=== PATIENT | female | born 1965 | race Caucasian/White ===

== ENCOUNTER → 2017-11-13 20:29 | Outpatient (CLI) | payer BC, SELFPAY ==
[2017-11-18 13:22] LABS: HPV Reflexed? NOT INDICATED
== END ==
PROVIDERS: Visit Provider Obstetrics & Gynecology
DX: Z12.4 Encounter for screening for malignant neoplasm of cervix (principal)
CPT/HCPCS: 88175; G0145

== ENCOUNTER → 2018-03-07 10:35 | Outpatient (CLI) | payer BC, SELFPAY ==
--- NOTE | 2018-03-07 10:40 | BI_ITS ---
MAMMOGRAPHY - BILATERAL SCREENING REASON FOR EXAM: Female, 52 years old. Routine annual screening examination. PERTINENT HISTORY: Grandmother with breast cancer. Aunt with breast cancer. TECHNIQUE: Digital bilateral breast donna (3D mammographic acquisition) in the CC and MLO projections. 2-D mediolateral oblique (MLO) and craniocaudad (CC) views of both breasts were obtained. CAD: Full Field Digital Mammography with Computer Added Detection was performed. COMPARISON: Comparison is made with prior study dated January 11, 2017 and January 10, 2016. FINDINGS: Breast Composition: There are scattered areas of fibroglandular density. There are no dominant masses or suspicious calcifications. Stable small bilateral axillary lymph nodes. No other significant abnormalities are identified. There has been no significant change since the prior study. BI/SCREENING MAMM (CAD), BILAT IMPRESSION: Stable bilateral screening mammogram. Yearly follow-up mammogram recommended. (A) ASSESSMENT CATEGORY: BIRADS Category 2: Benign. A letter regarding these results will be sent to the patient by the facility within 30 days. Approximately 10% of breast cancers are not detected by mammography. A normal mammogram should not delay biopsy of a clinically suspicious abnormality. [id number] Electronically Signed: Chris Britt MD at 11:53 EST , Service support ,
== END ==
PROVIDERS: Family Provider Family Medicine; PCP Family Medicine; Referring Provider Obstetrics & Gynecology; Visit Provider Obstetrics & Gynecology
DX: Z12.31 Encounter for screening mammogram for malignant neoplasm of breast (principal)
CPT/HCPCS: 77063; 77067

== ENCOUNTER → 2018-10-03 | Outpatient (CLI) | payer BC, SELFPAY ==
[2017-01-18 10:04] VITALS: BMI 28.5
--- NOTE | 2018-10-03 11:20 | RAD_ITS ---
STUDY: X-RAY CHEST REASON FOR EXAM: Female, 53 years old. Cough. TECHNIQUE: PA and lateral views of the chest. COMPARISON: None. FINDINGS: The lungs are clear and expanded. There is no demonstrated pleural abnormality. Normal size heart. Normal mediastinum and mike. Normal visualized pulmonary arteries. Normal visualized aortic arch and descending thoracic aorta. Normal visualized thoracic spine. Normal visualized ribs, clavicles, and shoulders. There is no demonstrated abnormality of the visualized soft tissue structures of the upper abdomen. RAD/Chest PA and Lateral IMPRESSION: Normal x-ray examination of the chest. Electronically Signed: Danny Shah MD at 13:33 EDT , Service support ,
== END | disposition home or self-care (01) ==
LOC: MTRAD 11:18
PROVIDERS: Family Provider Family Medicine; PCP Family Medicine; Referring Provider Family Medicine; Visit Provider Family Medicine
DX: R05 Cough (principal)
CPT/HCPCS: 71046

== ENCOUNTER → 2018-12-17 | Outpatient (CLI) | payer BC, SELFPAY ==
[2017-01-18 10:04] VITALS: BMI 28.5
== END | disposition home or self-care (01) ==
LOC: WOBLAB 12:27
PROVIDERS: Visit Provider Obstetrics & Gynecology
DX: E55.9 Vitamin D deficiency, unspecified (principal)
CPT/HCPCS: 36415; 82306

== ENCOUNTER → 2019-04-15 10:02 | Outpatient (CLI) | payer BC, SELFPAY ==
[2019-03-09 09:09] LABS: Hematocrit 45.9 % (37-47); Hemoglobin 15.2 g/dL (12.0-15.0); Mean Corp Hgb Conc 33.1 g/dL (32-36); Mean Corpuscular Hgb 29.2 pg (27.0-32.0); Mean Corpuscular Volume 88.3 fL (81-99); Mean Platelet Vol. 8.9 fl (6.2-12.0); Platelet Count 219 K/mm3 (150-450); RBC Distribution Width CV 12.4 % (11.6-14.6); White Blood Count 5.2 K/mm3 (4.4-11.0)
[2019-03-09 09:58] LABS: Hemoglobin A1c 4.9 % (4.2-6.3)
[2019-03-09 10:50] LABS: ALB/GLOB Ratio 1.2 RATIO (0.9-2.4); AST(SGOT) 25 U/L (15-37); Alanine Aminotransfer ALT/SGPT 32 U/L (13-56); Albumin, Serum 4.2 g/dL (3.2-5.0); Alkaline Phosphatase 77 U/L (45-117); Anion Gap 3 (5-15); BUN 18 mg/dL (7-18); BUN/Creat Ratio 22.1 RATIO (10-20); CRP 3.38 mg/L (0.0-3.0); Calcium,Total 9.9 mg/dL (8.5-10.1); Chloride 107 mmol/L (98-107); Cholesterol 192 mg/dL (200); Creatinine, Serum 0.81 mg/dL (0.55-1.02); EST Glomerular Filtration Rate 78 mL/min (>60); Est Glom Filt Rate - Afr Amer 94 mL/min (>60); Estradiol 14.1 pg/mL; Ferritin 32 ng/mL (8-252); Free T3 3.1 pg/mL (2.18-3.98); GGTP 8 U/L (5-55); Globulin 3.6 g/dL (2.2-4.2); Glucose 87 mg/dL (74-106); High Density Lipoprotein 62 mg/dL; Iron 116 ug/dL (50-170); Iron Binding Capacity,Total 353 ug/dL (250-450); PERCENT IRON SATURATION 32.9 % (15.0-55.0); Potassium 4.1 mmol/L (3.5-5.1); Protein, Total 7.8 g/dL (6.4-8.2); Sodium Level 141 mmol/L (136-145); T4 Free Direct 1.09 ng/dL (0.76-1.46); Thyroid Stim Hormone (TSH) 1.79 uIU/mL (0.358-3.74); Triglycerides 92 mg/dL; Very Low Density Lipoprotein 18 mg/dL (5-40)
[2019-03-09 11:47] LABS: Glucose 2 Hour Postprandial 91 mg/dL (<140)
[2019-03-09 11:55] LABS: Insulin 76.9 mU/L (2.6-37.6)
[2019-03-12 16:07] LABS: DHEA Sulfate 143.6 ug/dL (29.4-220.5)
[2019-03-13 13:20] LABS: T3 Reverse 18.9 ng/dL (9.2-24.1)
--- NOTE | 2019-04-15 10:04 | BI_ITS ---
MAMMOGRAPHY - BILATERAL SCREENING REASON FOR EXAM: Female, 53 years old. Routine annual screening examination. PERTINENT HISTORY: History of prior right stereotactic breast biopsy. Grandmother with breast cancer. Aunt with breast cancer. TECHNIQUE: Digital bilateral breast anthony (3D mammographic acquisition) in the CC and MLO projections. 2-D mediolateral oblique (MLO) and craniocaudad (CC) views of both breasts were obtained. CAD: Full Field Digital Mammography with Computer Added Detection was performed. COMPARISON: Comparison is made with prior examination dated March 07, 2018 and January 11, 2017 FINDINGS: Breast Composition: There are scattered areas of fibroglandular density. There are no dominant masses or suspicious calcifications. A tissue clip marker is seen in the superior anterior aspect of the right breast. No other significant abnormalities are identified. There has been no significant change since the prior study. BI/SCREEN MAMM (CAD) W/ANHTONY BILAT IMPRESSION: Stable bilateral screening mammogram. Yearly follow-up mammogram recommended. (A) ASSESSMENT CATEGORY: BIRADS Category 2: Benign. A letter regarding these results will be sent to the patient by the facility within 30 days. Approximately 10% of breast cancers are not detected by mammography. A normal mammogram should not delay biopsy of a clinically suspicious abnormality. [id number] Electronically Signed: Chris Britt, at 11:00 EST , Service support ,
== END ==
PROVIDERS: Obstetrics & Gynecology; PCP Family Medicine; Referring Provider Obstetrics & Gynecology; Visit Provider Obstetrics & Gynecology
DX: R53.83 Other fatigue (principal); R73.03 Prediabetes; M79.10 Myalgia, unspecified site; M79.7 Fibromyalgia; G47.00 Insomnia, unspecified; N95.1 Menopausal and female climacteric states; Z13.228 Encounter for screening for other metabolic disorders; Z12.31 Encounter for screening mammogram for malignant neoplasm of breast
CPT/HCPCS: 36415; 77063; 77067; 80053; 80061; 82533; 82627; 82670; 82728; 82950; 82977; 83036; 83090; 83525; 83540; 83550; 84403; 84439; 84443; 84481; 84482; 85027; 86140; 82626

== ENCOUNTER → 2019-09-10 | Outpatient (CLI) | payer BC, SELFPAY | END | disposition home or self-care (01) | LOC: MTDU 17:34 | PROVIDERS: PCP Family Medicine; Referring Provider Family Medicine; Visit Provider Family Medicine | DX: U07.1 COVID-19 (principal) | CPT/HCPCS: 87635; 94799; U0003 ==

== ENCOUNTER → 2019-10-06 | Outpatient (CLI) | payer BC, SELFPAY | END | disposition home or self-care (01) | LOC: MTDU 17:34 | PROVIDERS: PCP Family Medicine; Referring Provider Family Medicine; Visit Provider Family Medicine | DX: U07.1 COVID-19 (principal); J98.8 Other specified respiratory disorders; Z86.19 Personal history of other infectious and parasitic diseases | CPT/HCPCS: 87635; 94799; U0003 ==

== ENCOUNTER 2020-04-21 09:55 | Outpatient (RCR) | payer BC, SELFPAY ==
[2017-01-18 10:04] VITALS: BMI 28.5
[2020-04-21] MEDS: COVID-19 VACC, MRNA(PFIZER)/PF 30 MCG/0.3 ML SYRINGE IM (18:17)
[2020-05-12] MEDS: COVID-19 VACC, MRNA(PFIZER)/PF 30 MCG/0.3 ML SYRINGE IM (17:53)
== END 2020-07-19 23:59 ==
LOC: IMMUN 09:55
PROVIDERS: PCP Family Medicine; Visit Provider Family Medicine
DX: Z23 Encounter for immunization (principal)
CPT/HCPCS: 0001A; 0002A; 91300

== ENCOUNTER → 2020-06-17 09:58 | Outpatient (CLI) | payer BC, SELFPAY ==
[2017-01-18 10:04] VITALS: BMI 28.5
--- NOTE | 2020-06-17 10:01 | BI_ITS ---
MAMMOGRAPHY - BILATERAL SCREENING REASON FOR EXAM: Female, 54 years old. Routine annual screening examination. PERTINENT HISTORY: Grandmother with breast cancer. Aunts with breast cancer. Remote right stereotactic breast biopsy. TECHNIQUE: Digital bilateral breast anthony (3D mammographic acquisition) in the CC and MLO projections. 2-D mediolateral oblique (MLO) and craniocaudad (CC) views of both breasts were obtained. CAD: Full Field Digital Mammography with Computer Added Detection was performed. COMPARISON: Comparison is made with prior study dated 04/15/2019 and 03/07/2018. FINDINGS: Breast Composition: There are scattered areas of fibroglandular density. There are no dominant masses or suspicious calcifications. Stable benign-appearing bilateral axillary lymph nodes. A tissue clip marker is once again seen in the superior anterior central portion of the right breast. No other significant abnormalities are identified. There has been no significant change since the prior study. BI/SCRN MAMM (CAD)W/ANTHONY BILAT IMPRESSION: Stable bilateral screening mammogram. Yearly follow-up mammogram recommended. (A) ASSESSMENT CATEGORY: BIRADS Category 2: Benign. A letter regarding these results will be sent to the patient by the facility within 30 days. Approximately 10% of breast cancers are not detected by mammography. A normal mammogram should not delay biopsy of a clinically suspicious abnormality. [id number] Electronically Signed: Chris Britt MD at 10:56 EDT , Service support ,
== END ==
PROVIDERS: PCP Family Medicine; Referring Provider Obstetrics & Gynecology; Visit Provider Obstetrics & Gynecology
DX: Z12.31 Encounter for screening mammogram for malignant neoplasm of breast (principal)
CPT/HCPCS: 77063; 77067

== ENCOUNTER → 2020-08-31 | Outpatient (CLI) | payer BC, SELFPAY | END | disposition home or self-care (01) | LOC: LABSPEC 16:50 | PROVIDERS: PCP Family Medicine; Visit Provider Obstetrics & Gynecology | DX: R30.0 Dysuria (principal) | CPT/HCPCS: 87086 ==

== ENCOUNTER → 2020-09-01 09:05 | Outpatient (CLI) | payer BC, SELFPAY ==
[2020-09-01 10:22] LABS: Glucose 84 mg/dL (74-106)
[2020-09-02 08:27] LABS: Insulin 8.4 mU/L (2.6-37.6)
== END ==
PROVIDERS: PCP Family Medicine; Visit Provider Obstetrics & Gynecology
DX: E34.9 Endocrine disorder, unspecified (principal)
CPT/HCPCS: 36415; 82947; 83525

== ENCOUNTER 2021-02-22 13:32 | Outpatient (CLI) | payer BC, SELFPAY ==
[2021-02-28 22:06] LABS: HPV Genotype 16, Aptima Negative (Negative)
[2021-03-01 08:29] LABS: HPV APTIMA, High Risk Positive (Negative); HPV Genotype 18,45 Aptima Negative (Negative)
== END 2021-02-22 23:59 | disposition short-term general hospital (02) ==
LOC: LABSPEC 13:33
PROVIDERS: PCP Family Medicine; Visit Provider Obstetrics & Gynecology
DX: Z12.4 Encounter for screening for malignant neoplasm of cervix (principal)
CPT/HCPCS: 87624; 88175; G0145

== ENCOUNTER 2021-03-10 11:28 | Outpatient (CLI) | payer BC, SELFPAY ==
[2021-03-10 12:20] LABS: Absolute Lymphocyte Count 1.51 X10^3/uL (0.83-4.51); Absolute Neutrophil Count 3.3 X10^3/uL (2.0-7.7); Basophil# 0.03 X10^3/uL; Basophil% 0.6 % (0-1); Eosinophil# 0.12 X10^3/uL; Eosinophils% 2.2 % (0-5); Hematocrit 43.4 % (37-47); Hemoglobin 14.5 g/dL (12.0-15.0); Lymphocyte # 1.51 X10^3/ul (0.83-4.51); Mean Corp Hgb Conc 33.4 g/dL (32-36); Mean Corpuscular Hgb 29.8 pg (27.0-32.0); Mean Corpuscular Volume 89.3 fL (81-99); Mean Platelet Vol. 9.4 fl (6.2-12.0); Monocyte# 0.44 X10^3/uL; Monocyte% 8.1 % (0-10); NRBC Flagged by Analyzer 0 % (0-5); Neutrophil # 3.28 X10^3/uL (2.7-7.7); Neutrophil % 60.7 % (47-70); Platelet Count 246 K/mm3 (150-450); RBC Distribution Width CV 12.3 % (11.6-14.6); RBC Distribution Width SD 39.9 fl (35.1-43.9); Red Blood Count 4.86 M/mm3 (4.2-5.4); White Blood Count 5.4 K/mm3 (4.4-11.0)
[2021-03-10 12:52] LABS: Vitamin B12 791 pg/mL (211-911); Vitamin D,25 Hydroxy 55.2 ng/mL
[2021-03-10 13:08] LABS: ALB/GLOB Ratio 1.2 RATIO (0.9-2.4); AST(SGOT) 20 U/L (15-37); Alanine Aminotransfer ALT/SGPT 30 U/L (13-56); Albumin, Serum 3.9 g/dL (3.2-5.0); Alkaline Phosphatase 86 U/L (45-117); Anion Gap 3 (5-15); BUN 19 mg/dL (7-18); BUN/Creat Ratio 27.3 RATIO (10-20); Calcium,Total 9.1 mg/dL (8.5-10.1); Chloride 106 mmol/L (98-107); EST Glomerular Filtration Rate 92 mL/min (>60); Est Glom Filt Rate - Afr Amer 111 mL/min (>60); Globulin 3.2 g/dL (2.2-4.2); Glucose 82 mg/dL (74-106); Magnesium 2.6 mg/dL (1.6-2.6); Potassium 4.1 mmol/L (3.5-5.1); Protein, Total 7.1 g/dL (6.4-8.2); Sodium Level 139 mmol/L (136-145); Thyroid Stim Hormone (TSH) 1.58 uIU/mL (0.358-3.74)
== END 2021-03-10 23:59 | disposition short-term general hospital (02) ==
LOC: BIMLAB 11:28
PROVIDERS: PCP Internal Medicine; Referring Provider Internal Medicine; Visit Provider Internal Medicine
DX: F41.9 Anxiety disorder, unspecified (principal); F32.A Depression, unspecified; G47.00 Insomnia, unspecified; E83.42 Hypomagnesemia
CPT/HCPCS: 36415; 80053; 82306; 82607; 83735; 84443; 85025

== ENCOUNTER → 2021-06-19 | Outpatient (CLI) | payer BC, SELFPAY ==
--- NOTE | 2021-06-19 10:57 | BI_ITS ---
MAMMOGRAPHY - BILATERAL SCREENING REASON FOR EXAM: Female, 55 years old. Routine annual screening examination. PERTINENT HISTORY: Grandmother with breast cancer. Aunts with breast cancer. Remote right stereotactic breast biopsy. TECHNIQUE: Digital bilateral breast anthony (3D mammographic acquisition) in the CC and MLO projections. 2-D mediolateral oblique (MLO) and craniocaudad (CC) views of both breasts were obtained. CAD: Full Field Digital Mammography with Computer Added Detection was performed. COMPARISON: Comparison is made with prior study of 06/17/2020 and 04/15/2019. FINDINGS: Breast Composition: There are scattered areas of fibroglandular density. There are no dominant masses or suspicious calcifications. A tissue clip marker is once again seen in the superior anterior central portion of the right breast. Stable small benign-appearing bilateral axillary lymph nodes. No other significant abnormalities are identified. There has been no significant change since the prior study. BI/SCRN MAMM (CAD)W/ANTHONY BILAT IMPRESSION: Stable bilateral screening mammogram. Yearly follow-up mammogram recommended. (A) ASSESSMENT CATEGORY: BIRADS Category 2: Benign. A letter regarding these results will be sent to the patient by the facility within 30 days. Approximately 10% of breast cancers are not detected by mammography. A normal mammogram should not delay biopsy of a clinically suspicious abnormality. [id number] Electronically Signed: Chris Britt MD at 12:27 EDT ,
== END | disposition home or self-care (01) ==
LOC: OPBI 10:56
PROVIDERS: PCP Internal Medicine; Visit Provider Obstetrics & Gynecology
DX: Z12.31 Encounter for screening mammogram for malignant neoplasm of breast (principal)
CPT/HCPCS: 77063; 77067

== ENCOUNTER → 2022-03-20 | Outpatient (CLI) | payer BC, SELFPAY ==
[2022-03-29 03:07] LABS: HPV Genotype 16, Aptima Negative (Negative)
[2022-03-30 18:57] LABS: HPV APTIMA, High Risk Positive (Negative); HPV Genotype 18,45 Aptima Negative (Negative)
== END | disposition home or self-care (01) ==
PROVIDERS: PCP Internal Medicine; Visit Provider Obstetrics & Gynecology
DX: Z12.4 Encounter for screening for malignant neoplasm of cervix (principal)
CPT/HCPCS: 87624; 88175; G0145

== ENCOUNTER → 2022-04-09 | Outpatient (CLI) | payer BC, SELFPAY ==
[2022-04-09 09:04] LABS: Cholesterol 186 mg/dL (200); Glucose 104 mg/dL (74-106); High Density Lipoprotein 60 mg/dL; Thyroid Stim Hormone (TSH) 2.72 uIU/mL (0.358-3.74); Triglycerides 129 mg/dL; Very Low Density Lipoprotein 26 mg/dL (5-40)
[2022-04-09 09:14] LABS: Vitamin D,25 Hydroxy 56.8 ng/mL
== END | disposition home or self-care (01) ==
LOC: PAVLAB 08:12
PROVIDERS: PCP Internal Medicine; Referring Provider Obstetrics & Gynecology; Visit Provider Obstetrics & Gynecology
DX: Z13.1 Encounter for screening for diabetes mellitus (principal); Z13.220 Encounter for screening for lipoid disorders; Z13.29 Encounter for screening for other suspected endocrine disorder; Z13.21 Encounter for screening for nutritional disorder
CPT/HCPCS: 36415; 80061; 82306; 82947; 84443

== ENCOUNTER → 2022-04-30 | Outpatient (CLI) | payer BC, SELFPAY ==
[2022-04-30 15:47] LABS: Absolute Lymphocyte Count 1.46 X10^3/uL (0.83-4.51); Absolute Neutrophil Count 3.3 X10^3/uL (2.0-7.7); Basophil# 0.03 X10^3/uL; Basophil% 0.6 % (0-1); Eosinophil# 0.15 X10^3/uL; Eosinophils% 2.8 % (0-5); Hematocrit 43.2 % (37-47); Lymphocyte # 1.46 X10^3/ul (0.83-4.51); Lymphocyte % 27.4 % (19-41); Mean Corp Hgb Conc 32.4 g/dL (32-36); Mean Corpuscular Hgb 29.6 pg (27.0-32.0); Mean Corpuscular Volume 91.3 fL (81-99); Mean Platelet Vol. 10.1 fl (6.2-12.0); Monocyte# 0.38 X10^3/uL; Monocyte% 7.1 % (0-10); NRBC Flagged by Analyzer 0 % (0-5); Neutrophil # 3.28 X10^3/uL (2.7-7.7); Neutrophil % 61.7 % (47-70); Platelet Count 232 K/mm3 (150-450); RBC Distribution Width CV 12.7 % (11.6-14.6); RBC Distribution Width SD 41.8 fl (35.1-43.9); Red Blood Count 4.73 M/mm3 (4.2-5.4); White Blood Count 5.3 K/mm3 (4.4-11.0)
[2022-04-30 16:03] LABS: Hemoglobin A1c 4.8 % (3.8-5.6)
== END | disposition home or self-care (01) ==
LOC: BIMLAB 11:51
PROVIDERS: PCP Internal Medicine; Referring Provider Internal Medicine; Visit Provider Internal Medicine
DX: F41.9 Anxiety disorder, unspecified (principal); F32.A Depression, unspecified; E66.3 Overweight
CPT/HCPCS: 36415; 83036; 85025

== ENCOUNTER → 2022-07-02 | Outpatient (CLI) | payer BC, SELFPAY ==
[2022-07-02 16:17] LABS: ALB/GLOB Ratio 1.2 RATIO (0.9-2.4); AST(SGOT) 24 U/L (15-37); Alanine Aminotransfer ALT/SGPT 26 U/L (13-56); Albumin, Serum 3.7 g/dL (3.2-5.0); Alkaline Phosphatase 99 U/L (45-117); Anion Gap 6 (5-15); BUN 15 mg/dL (7-18); BUN/Creat Ratio 19.8 RATIO (10-20); Calcium,Total 9.3 mg/dL (8.5-10.1); Chloride 103 mmol/L (98-107); Creatinine, Serum 0.76 mg/dL (0.55-1.02); EST Glomerular Filtration Rate 83 mL/min (>60); Est Glom Filt Rate - Afr Amer 101 mL/min (>60); Glucose 87 mg/dL (74-106); Magnesium 2.6 mg/dL (1.6-2.6); Potassium 4.2 mmol/L (3.5-5.1); Protein, Total 6.7 g/dL (6.4-8.2); Sodium Level 140 mmol/L (136-145)
== END | disposition home or self-care (01) ==
LOC: BIMLAB 12:03
PROVIDERS: PCP Internal Medicine; Referring Provider Internal Medicine; Visit Provider Internal Medicine
DX: F41.9 Anxiety disorder, unspecified (principal); F32.A Depression, unspecified; E83.42 Hypomagnesemia
CPT/HCPCS: 36415; 80053; 83735

== ENCOUNTER → 2022-07-17 | Outpatient (CLI) | payer BC, SELFPAY ==
--- NOTE | 2022-07-17 14:37 | BI_ITS ---
MAMMOGRAPHY - BILATERAL SCREENING REASON FOR EXAM: Female, 56 years old. Routine annual screening examination. PERTINENT HISTORY: Grandmother with breast cancer. Aunt with breast cancer. Remote right stereotactic breast biopsy. TECHNIQUE: Digital bilateral breast anthony (3D mammographic acquisition) in the CC and MLO projections. 2-D mediolateral oblique (MLO) and craniocaudad (CC) views of both breasts were obtained. CAD: Full Field Digital Mammography with Computer Added Detection was performed. COMPARISON: Comparison is made with prior study of June 19, 2021 and June 17, 2020. FINDINGS: Breast Composition: There are scattered areas of fibroglandular density. There are no dominant masses or suspicious calcifications. Stable benign-appearing axillary lymph nodes. No other significant abnormalities are identified. There has been no significant change since the prior study. BI/SCRN MAMM (CAD)W/ANTHONY BILAT IMPRESSION: Stable bilateral screening mammogram. Yearly follow-up mammogram recommended. (A) ASSESSMENT CATEGORY: BIRADS Category 2: Benign. A letter regarding these results will be sent to the patient by the facility within 30 days. Approximately 10% of breast cancers are not detected by mammography. A normal mammogram should not delay biopsy of a clinically suspicious abnormality. [id number] Electronically Signed: Chris Britt MD at 15:18 EDT ,
== END | disposition home or self-care (01) ==
LOC: OPBI 14:35
PROVIDERS: PCP Internal Medicine; Referring Provider Obstetrics & Gynecology; Visit Provider Obstetrics & Gynecology
DX: Z12.31 Encounter for screening mammogram for malignant neoplasm of breast (principal)
CPT/HCPCS: 77063; 77067

== ENCOUNTER → 2023-04-04 | Outpatient (CLI) | payer BC, SELFPAY ==
[2023-04-04 12:30] LABS: Absolute Lymphocyte Count 1.57 X10^3/uL (0.83-4.51); Absolute Neutrophil Count 2.7 X10^3/uL (2.0-7.7); Basophil# 0.01 X10^3/uL; Basophil% 0.2 % (0-1); Eosinophil# 0.14 X10^3/uL; Eosinophils% 2.9 % (0-5); Hematocrit 42.1 % (37-47); Hemoglobin 13.5 g/dL (12.0-15.0); Lymphocyte # 1.57 X10^3/ul (0.83-4.51); Lymphocyte % 32.4 % (19-41); Mean Corp Hgb Conc 32.1 g/dL (32-36); Mean Corpuscular Volume 90.3 fL (81-99); Mean Platelet Vol. 9.6 fl (6.2-12.0); Monocyte# 0.38 X10^3/uL; Monocyte% 7.8 % (0-10); NRBC Flagged by Analyzer 0 % (0-5); Neutrophil # 2.74 X10^3/uL (2.7-7.7); Neutrophil % 56.5 % (47-70); Platelet Count 211 K/mm3 (150-450); RBC Distribution Width CV 13.1 % (11.6-14.6); RBC Distribution Width SD 42.9 fl (35.1-43.9); Red Blood Count 4.66 M/mm3 (4.2-5.4); White Blood Count 4.9 K/mm3 (4.4-11.0)
[2023-04-04 13:36] LABS: ALB/GLOB Ratio 1.1 RATIO (0.9-2.4); AST(SGOT) 21 U/L (15-37); Alanine Aminotransfer ALT/SGPT 30 U/L (13-56); Albumin, Serum 3.6 g/dL (3.2-5.0); Alkaline Phosphatase 82 U/L (45-117); Anion Gap 0 (5-15); BUN 15 mg/dL (7-18); BUN/Creat Ratio 19.1 RATIO (10-20); Calcium,Total 9.5 mg/dL (8.5-10.1); Chloride 106 mmol/L (98-107); Cholesterol 186 mg/dL (200); Creatinine, Serum 0.79 mg/dL (0.55-1.02); EST Glomerular Filtration Rate 79 mL/min (>60); Est Glom Filt Rate - Afr Amer 96 mL/min (>60); Globulin 3.3 g/dL (2.2-4.2); Glucose 91 mg/dL (74-106); High Density Lipoprotein 62 mg/dL; Protein, Total 6.9 g/dL (6.4-8.2); Sodium Level 137 mmol/L (136-145); Triglycerides 83 mg/dL; Very Low Density Lipoprotein 17 mg/dL (5-40)
== END | disposition home or self-care (01) ==
LOC: BIMLAB 09:21
PROVIDERS: PCP Internal Medicine; Visit Provider Internal Medicine
DX: Z00.00 Encounter for general adult medical examination without abnormal findings (principal)
CPT/HCPCS: 36415; 80053; 80061; 85025

== ENCOUNTER → 2023-06-03 | Outpatient (CLI) | payer BC, SELFPAY ==
[2023-06-07 10:08] LABS: HPV APTIMA, High Risk Negative (Negative)
== END | disposition home or self-care (01) ==
PROVIDERS: PCP Internal Medicine; Referring Provider Obstetrics & Gynecology; Visit Provider Obstetrics & Gynecology
DX: Z12.4 Encounter for screening for malignant neoplasm of cervix (principal); R10.2 Pelvic and perineal pain
CPT/HCPCS: 87086; 87624; 88175; G0145

== ENCOUNTER → 2023-07-29 | Outpatient (CLI) | payer BC, SELFPAY ==
--- NOTE | 2023-07-29 10:51 | BI_ITS ---
MAMMOGRAPHY - BILATERAL SCREENING REASON FOR EXAM: Female, 57 years old. Routine annual screening examination. PERTINENT HISTORY: Grandmother with breast cancer. Aunts with breast cancer. History of right stereotactic biopsy. TECHNIQUE: Digital bilateral breast anthony (3D mammographic acquisition) in the CC and MLO projections. 2-D mediolateral oblique (MLO) and craniocaudad (CC) views of both breasts were obtained. CAD: Full Field Digital Mammography with Computer Added Detection was performed. COMPARISON: Comparison is made with prior study dated July 17, 2022 and June 19, 2021. FINDINGS: Breast Composition: There are scattered areas of fibroglandular density. There are no dominant masses or suspicious calcifications. Stable small benign-appearing bilateral axillary lymph nodes. A tissue clip marker is seen in the anterior upper central portion of the right breast. No other significant abnormalities are identified. There has been no significant change since the prior study. BI/SCRN MAMM (CAD)W/ANTHONY BILAT IMPRESSION: Stable bilateral screening mammogram. Yearly follow-up mammogram recommended. (A) ASSESSMENT CATEGORY: BIRADS Category 2: Benign. A letter regarding these results will be sent to the patient by the facility within 30 days. Approximately 10% of breast cancers are not detected by mammography. A normal mammogram should not delay biopsy of a clinically suspicious abnormality. [id number] Electronically Signed: Chris Britt MD at 13:07 EDT ,
== END | disposition home or self-care (01) ==
LOC: OPBI 10:51
PROVIDERS: PCP Internal Medicine; Referring Provider Obstetrics & Gynecology; Visit Provider Obstetrics & Gynecology
DX: Z12.31 Encounter for screening mammogram for malignant neoplasm of breast (principal); Z80.3 Family history of malignant neoplasm of breast
CPT/HCPCS: 77063; 77067

== ENCOUNTER → 2023-09-04 | Outpatient (CLI) | payer BC, SELFPAY ==
[2023-09-04 13:08] LABS: Magnesium 2.6 mg/dL (1.6-2.6); Thyroid Stim Hormone (TSH) 1.88 uIU/mL (0.358-3.74)
[2023-09-04 13:21] LABS: Vitamin B12 675 pg/mL (211-911); Vitamin D,25 Hydroxy 61.3 ng/mL
[2023-09-04 13:45] LABS: Hemoglobin A1c 4.7 % (3.8-5.6)
[2023-09-05 07:08] LABS: Insulin Level 8.7 uIU/mL (2.6-24.9)
== END | disposition home or self-care (01) ==
LOC: VSLAB 09:39
PROVIDERS: PCP Family Medicine; Visit Provider Family Medicine
DX: E88.819 Insulin resistance, unspecified (principal); E56.8 Deficiency of other vitamins; E55.9 Vitamin D deficiency, unspecified
CPT/HCPCS: 36415; 82306; 82607; 83036; 83525; 83735; 84443

== ENCOUNTER → 2024-05-11 | Outpatient (CLI) | payer BC, SELFPAY ==
--- NOTE | 2024-05-11 14:04 | RAD_ITS ---
PROCEDURE: CHEST PA AND LATERAL 05/11/2024 REASON FOR EXAM: COUGH TECHNIQUE: Frontal and lateral views of the chest. PA and lateral COMPARISON: 10/03/2018 FINDINGS: The lungs appear clear. Pulmonary vascularity appears within limits. No pleural effusion. The cardiac and mediastinal contours appear within limits. The visualized osseous structures appear within limits. RAD/Chest PA and Lateral IMPRESSION: No evidence of acute disease. Reading Location: [id number]
== END | disposition home or self-care (01) ==
PROVIDERS: PCP Family Medicine
DX: R05.9 Cough, unspecified (principal)
CPT/HCPCS: 71046

== ENCOUNTER → 2024-06-11 | Outpatient (CLI) | payer BC, SELFPAY ==
[2024-06-16 12:08] LABS: HPV APTIMA, High Risk Negative (Negative)
== END | disposition home or self-care (01) ==
LOC: LABSPEC 15:15
PROVIDERS: PCP Family Medicine; Referring Provider Obstetrics & Gynecology; Visit Provider Obstetrics & Gynecology
DX: Z12.4 Encounter for screening for malignant neoplasm of cervix (principal)
CPT/HCPCS: 87624; 88175; G0145

== ENCOUNTER → 2024-08-03 | Outpatient (CLI) | payer BC, SELFPAY ==
--- NOTE | 2024-08-03 15:00 | BI_ITS ---
EXAM: SCRN MAMM (CAD)W/ANTHONY BILAT DATE: 08/03/2024 CLINICAL HISTORY: F, Age 58 y/o , SCREENING MAMMOGRAM BREAST CANCER RISK ASSESSMENT: Has not been calculated. TECHNIQUE: SCRN MAMM (CAD)W/ANTHONY BILAT. COMPARISON: Prior exam(s) dated 07/29/2023 and 07/17/2022. FINDINGS: TISSUE DENSITY: The breast tissue is composed of scattered areas of fibroglandular density. Bilateral Breast Mammographic Findings: There are no suspicious masses, suspicious cluster of microcalcifications, architectural distortion or secondary signs of malignancy identified in either breast. A radiopaque clip is seen in the right breast. The biopsy was benign. Post biopsy site is stable. BI/SCRN MAMM (CAD)W/ANTHONY BILAT IMPRESSION: Benign screening mammogram. OVERALL FINAL ASSESSMENT BI-RADS 2: BENIGN RECOMMEND ANNUAL MAMMOGRAPHIC SCREENING. RECOMMENDATION: Routine annual follow-up in 1 Year A letter with findings and recommendations will be mailed to the patient. Reading Location: [id number]
== END | disposition home or self-care (01) ==
LOC: OPBI 14:45
PROVIDERS: PCP Family Medicine; Referring Provider Obstetrics & Gynecology; Visit Provider Obstetrics & Gynecology
DX: Z12.31 Encounter for screening mammogram for malignant neoplasm of breast (principal)
CPT/HCPCS: 77063; 77067

== ENCOUNTER → 2024-09-07 | Outpatient (CLI) | payer BC, SELFPAY ==
[2024-09-07 12:39] LABS: Hematocrit 40.3 % (37-47); Hemoglobin 13.1 g/dL (12.0-15.0); Immature Granulocytes Count 0.020 X10^3/uL (0.0-0.0); Mean Corp Hgb Conc 32.5 g/dL (32-36); Mean Corpuscular Volume 85.9 fL (81-99); Mean Platelet Vol. 9.7 fl (6.2-12.0); NRBC Flagged by Analyzer 0 % (0-5); Platelet Count 232 K/mm3 (150-450); RBC Distribution Width CV 13.5 % (11.6-14.6); RBC Distribution Width SD 41.8 fl (35.1-43.9); Red Blood Count 4.69 M/mm3 (4.2-5.4); White Blood Count 6.1 K/mm3 (4.4-11.0)
[2024-09-07 13:41] LABS: AST(SGOT) 31 U/L (<=31); Alanine Aminotransfer ALT/SGPT 22 U/L (<=34); Albumin, Serum 4.3 g/dL (3.4-4.8); Alkaline Phosphatase 90 U/L (35-104); Anion Gap 10 (5-15); BUN 15 mg/dL (4-19); BUN/Creat Ratio 18.3 RATIO (10-20); Calcium,Total 9.7 mg/dL (7.6-11.0); Carbon Dioxide 26.1 mmol/L (21.0-32.0); Chloride 104 mmol/L (98-108); Cholesterol 194 mg/dL (<=200); Globulin 2.7 g/dL (2.2-4.2); Glucose 92 mg/dL (70-99); Low Density Lipoprotein Calc. 111 mg/dL; Potassium 4.4 mmol/L (3.3-5.1); Triglycerides 90 mg/dL; Very Low Density Lipoprotein 18 mg/dL (5-40); cholesterol:hdl ratio screen 3.01
--- OUTSIDE RECORDS SUMMARY | 2024-09-07 21:02 | XMS RPT_ITS | CCD ---
Author Organization [facility] Care Team Providers Care Lamp Decorator Name Role Phone MD Sandeep Marc Primary Care Provider Allisonva MD Sandeep Arias Referring Provider Unavaila Dr. Kayla Reyna Attending Provider [phone] MD Sandeep Patel Primary Care Provider U MD Sandeep Carreon Referring Provider Dr. Kayla Parker Attending Provider [phone] Dr. Sandeep Marc Attending Provider [phone] MD Sandeep Patel Primary Care Provider U MD Sandeep Carreon Referring Provider Dr. Kayla Parker Attending Provider [phone] Dr. Sandeep Marc Primary Care Provider [phone] Dr. Sandeep Marc Referring Provider [phone] Dr. Sandeep Marc Primary Care Provider [phone] Dr. Sandeep Marc Attending Provider [phone] Dr. Sandeep Marc Referring Provider [phone] Dr. Kayla Dunn Attending Provider [phone] Marialuisa Gomes DO Primary Care Provider Beam MANNEQUIN MOLD MAKER-C, Zebueliecer Attending Provider Beam MANNEQUIN MOLD MAKER-C, Zebulun Referring Provider Marialuisa Gomes DO Referring Provider Dr. Kayla Dunn MD Attending Provider Dr. Kayla Dunn MD Referring Provider [phone] Eliseo VSC, Marialuisa Primary Care Unavailable Eliseo VSC, Marialuisa Attending Unavailable Eliseo VSC, Marialuisa Primary Care Unavailable Beam VSC, Zebulun Attending Unavailable Beam VSC, Zebulun Referring Unavailable Kayla Dunn Referring Unavailable Eliseo VSC, Marialuisa Primary Care Unavailable Kayla Dunn Attending Unavailable Kayla Dunn Referring Unavailable Eliseo VSC, Marialuisa Primary Care Unavailable Kayla Dunn Attending Unavailable Kayla Dunn Attending Unavailable Eliseo VSC, Marialuisa Primary Care Unavailable Eliseo VSC, Marialuisa Referring Unavailable Eliseo VSC, Marialuisa Referring Unavailable Eliseo VSC, Marialuisa Primary Care Unavailable Kayla Dunn Attending Unavailable Kayla Dunn Attending Unavailable Eliseo VS, Marialuisa Primary Care Unavailable Oleghe, Efewongbe Referring Unavailable Allergies Allergy Classification Reported Allergen(s) Allergy Type Date of Onset Reaction(s) Facility (2 sources) cefprozil Drug Allergy 2 [facility] (7 sources) Codeine Drug Allergy 2 [facility] (7 sources) Formaldehyde Drug Allergy 2 [facility] (7 sources) Latex Allergy to substance 2 [facility] (7 sources) Neomycin Drug Allergy 2 [facility] (7 sources) Sulfonamides (Antibiotic) Allergy to substance 2 [facility] (1 source) Codeine Drug Allergy 5 [facility] (1 source) Formaldehyde Drug Allergy 5 [facility] (1 source) Latex Drug allergy (disorder) 5 [facility] (1 source) Neomycin Drug Allergy 5 [facility] (1 source) Sulfonamides (Antibiotic) Drug allergy (disorder) 5 [facility] Medications Current Medications Medication Drug Class(es) Dates Sig (Normalized) Sig (Original) B-Complex With Vitamin C (4 sources) Start: 03-10-2021 take 1 tablet by mouth once daily B-Complex With Vitamin C Active 1 TABLET PO DAILY March 10, 2021 1:00am Start: 03-10-2021 take 1 tablet by shelly th once daily B-Complex With Vitamin C Active 1 TABLET PO DAILY March 10, 2021 12:00am B-Complex With Vitamin C tablet (3 sources) Start: 03-10-2021 B-Complex With Vitamin C tablet Active 1 {tbl} PO DAILY March 10, 2021 1:00am bacillus coagulans [id number] unt chewable tablet (7 sources) Start: 01-17-2017 Bacillus Coagulans (Probiotic (B. Coagulans)) 250 million cell tablet,chewable Active NMA PO 0 January 17, 2017 1:00am cholecalciferol 0.125 mg oral capsule (7 sources) Vitamin D Start: 01-17-2017 take 1 capsule by mouth once daily Cholecalciferol (Vitamin D3) 5,000 unit capsule Active 5000 U PO daily January 17, 2017 1:00am clobetasol propionate 0.0005 mg/mg topical ointment (4 sources) Corticosteroid Start: 06-03-2023 Clobetasol 0.05 % ointment Active 1 NMA TOPICAL AT BEDTIME 30 3 June 03, 2023 12:00am apply thin layer; massage gently into affected area nightly x 6 weeks then 1-2x weekly Magnesium (7 sources) Start: 03-10-2021 take 1 tablet by mouth once daily Magnesium 250 mg tablet Active 250 mg PO DAILY March 10, 2021 1:00am Start: 03-10-2021 take 250 mg by mouth once lara y Magnesium Active 250 MG PO DAILY March 10, 2021 1:00am Start: 03-10-2021 take 250 mg by mouth once lara y Magnesium Active 250 MG PO DAILY March 10, 2021 12:00am zinc gluconate 100 mg oral tablet (4 sources) Start: 06-03-2023 take 1 tablet by mouth once daily Zinc Gluconate 100 mg tablet Active 100 mg PO DAILY June 03, 2023 12:00am Completed/Discontinued Medications Medication Drug Class(es) Dates Sig (Normalized) Sig (Original) amitriptyline hydrochloride 25 mg oral tablet (7 sources) Tricyclic Antidepressant Start: 01-17-2017 End: 01-18-2017 Amitriptyline 25 mg tablet Discontinued PO 30 0 January 17, 2017 1:00am January 18, 2017 11:05am Start: 01-17-2017 End: 01-18-2017 Amitriptyline Discontinued P O 30 January 17, 2017 1:00am January 18, 2017 11:05am cimetidine 400 mg oral tablet (14 sources) Histamine-2 Receptor Antagonist Start: 01-17-2017 End: 03-10-2021 take 1 tablet by mouth once daily Cimetidine 400 mg tablet Discontinued 400 mg PO daily January 18, 2017 11:05am March 10, 2021 11:47am ciprofloxacin 500 mg oral tablet (7 sources) Quinolone Antimicrobial Start: 12-07-2021 End: 03-20-2022 take 1 tablet by mouth twice daily at mealtime Ciprofloxacin Hcl 500 mg tablet Discontinued 500 mg PO TWICE A DAY 14 December 07, 2021 12:00am March 20, 2022 3:40pm Take with food ferrous sulfate 324 mg delayed release oral tablet (7 sources) Start: 01-17-2017 End: 03-10-2021 Ferrous Sulfate 324 mg (65 mg iron) tablet,delayed release (DR/EC) Discontinued PO 30 0 January 17, 2017 1:00am March 10, 2021 11:47am Start: 01-17-2017 End: 03-10-2021 Ferrous Sulfate Discontinued PO 30 January 17, 2017 1:00am March 10, 2021 11:47am FLUoxetine 20 mg oral capsule (20 sources) Serotonin Reuptake Inhibitor Start: 01-17-2017 End: 07-02-2022 take 1 capsule by mouth once daily Fluoxetine 20 mg capsule Discontinued 20 mg PO DAILY 90 0 April 10, 2021 10:32am July 12, 2021 1:18pm Start: 01-17-2017 End: 03-10-2021 Fluoxetine 20 mg capsule Dis continued PO 30 0 January 17, 2017 1:00am March 10, 2021 11:47am hydroxychloroquine sulfate 200 mg oral tablet (7 sources) Antimalarial, Antirheumatic Agent Start: 01-17-2017 End: 01-18-2017 take 1 tablet by mouth once daily Hydroxychloroquine (Plaquenil) 200 mg tablet Discontinued 200 mg PO daily January 17, 2017 1:00am January 18, 2017 11:05am Problems Problem Classification Problem Date Documented Date Episodic/Chronic Anxiety disorders (10 sources) Mixed anxiety and depressive disorder; Translations: [Anxiety disorder, unspecified] 07-12-2021 Chronic Cardiac dysrhythmias (7 sources) Supraventricular tachycardia; Translations: [Supraventricular tachycardia] 01-17-2017 Chronic Essential hypertension (9 sources) Hypertensive disorder; Translations: [Essential (primary) hypertension] 04-30-2022 Chronic Other connective tissue disease (5 sources) Cramp in lower limb; Translations: [Sleep related leg cramps] 07-02-2022 Chronic Other connective tissue disease (1 source) Sleep related leg cramps; Translations: [Sleep related leg cramps] 07-02-2022 Chronic Other female genital disorders (7 sources) Disorder of female genital system; Translations: [Unspecified condition associated with female genital organs and menstrual cycle] 03-20-2022 Episodic Comment on above: vitamin E oil and sk in protectants, offered vaginal estrogen Other female genital disorders (2 sources) Unspecified condition associated with female genital organs and menstrual cycle; Translations: [Other specified symptoms associated with female genital organs] 03-20-2022 Episodic Other nutritional; endocrine; and metabolic disorders (7 sources) Hypomagnesemia; Translations: [Hypomagnesemia] 03-10-2021 Chronic Other nutritional; endocrine; and metabolic disorders (1 source) Hypomagnesemia; Translations: [Disorders of magnesium metabolism] 07-02-2022 Chronic Other nutritional; endocrine; and metabolic disorders (6 sources) Body mass index 25-29 - overweight; Translations: [Overweight] 04-30-2022 Episodic Other nutritional; endocrine; and metabolic disorders (2 sources) Overweight; Translations: [Overweight] 04-30-2022 Episodic Other screening for suspected conditions (not mental disorders or infectious disease) (7 sources) Patient encounter status; Translations: [Encounter for screening for malignant neoplasm of colon] Onset: 06-18-2024 03-07-2023 Episodic Other skin disorders (5 sources) Lichen sclerosus et atrophicus; Translations: [Lichen sclerosus et atrophicus] 06-03-2023 Chronic Comment on above: clobetasol Other upper respiratory infections (6 sources) Upper respiratory infection; Translations: [Acute upper respiratory infection, unspecified] 07-02-2022 Episodic Residual codes; unclassified (7 sources) Insomnia; Translations: [Insomnia, unspecified] 03-10-2021 Episodic Residual codes; unclassified (10 sources) Positive measurement finding; Translations: [Positive test for human papillomavirus (HPV)] 04-02-2022 Episodic Comment on above: hpv pos most recentl y 2022, nl pap neg hpv 2023, needs repeat pap and hpv 2024 Unclassified (5 sources) Encounter for screening for malignant neoplasm of colon; Translations: [Z12.11 - Encounter for screening for malignant neoplasm of colon] Unclassified (1 source) Cough, unspecified; Translations: [Cough, unspecified] Onset: 05-14-2024 Unclassified (1 source) Insulin resistance, unspecified; Translations: [Insulin resistance, unspecified] Onset: 09-26-2023 Viral infection (4 sources) Viral disease; Translations: [Viral infection, unspecified] 08-25-2022 Episodic Results Test Name Value Interpretation Reference Range Facility Breast imaging reportOrdered By: Lubna Norman on 08-03-2024 Study report [facility] Imaging Services [address] [place], [place] [address] SCRN MAMM (CAD)W/ANTHONY BILAT MR#: [id number] Acct: [id number] Name: SHONA DUARTE Rep #: [id number] : 1965 F 58 From: Oscar Norman DO PCP: Marialuisa Gomes DO Status: REG CLI Study:SCRN MAMM (CAD)W/ANTHONY BILAT Date of Exa m: 08/03/24 Exam# [id number] Ordering Dr: Kayla Fox MD EXAM: SCRN MAMM (CAD)W/ANTHONY BILAT DATE: 08/03/2024 CLINICAL HISTORY: F, Age 58 y/o , SCREENING MAMMOGRAM BREAST CANCER RISK ASSESSMENT: Has not been calculated. TECHNIQUE: SCRN MAMM (CAD)W/ANTHONY BILAT. COMPARISON: Prior exam(s) dated 07/29/2023 and 07/17/2022. FINDINGS: TISSUE DENSITY: The breast tissue is composed of scattered areas of fibroglandular density. Bilateral Breast Mammographic Findings: There are no suspicious masses, suspicious cluster of microcalcifications, architectural distortion or secondary signs of malignancy identified in either breast. A radiopaque clip is seen in the right breast. The biopsy was benign. Post biopsy site is stable. BI/SCRN MAMM (CAD)W/ANTHONY BILAT IMPRESSION: Benign screening mammogram. OVERALL FINAL ASSESSMENT BI-RADS 2: BENIGN RECOMMEND ANNUAL MAMMOGRAPHIC SCREENING. RECOMMENDATION: Routine annual follow-up in 1 Year A letter with findings and recommendations will be mailed to the patient. Reading Location: [id number] CC: Dr. Kayla Dunn MD; Marialuisa Gomes DO ~ Assurance Auditor: Signed [facility] SCRN MAMM (CAD)W/ANTHONY BILATo n 08-03-2024 SCRN MAMM (CAD)W/ANTHONY BILAT [facility] Imaging Services [address] [place] [address] SCRN MAMM (CAD)W/ANTHONY BILAT MR#: [id number] Acct: [id number] Name: SHONA DUARTE Rep #: [id number] : 1965 F 58 From: Lubna Calhoun O PCP: Marialuisa Gomes DO Status: REG CLI Study: SCRN MAMM (CAD)W/ANTHONY BILAT Date of Exam: 07/13 05/05 Exam# [id number] Ordering Dr: Kayla Dunn EXAM: SCRN MAMM (CAD)W/ANTHONY BILAT DATE: 08/03/2024 CLINICAL HISTORY: F, Age 58 y/o , SCREENING MAMMOGRAM BREAST CANCER RISK ASSESSMENT: Has not been calculated. TECHNIQUE: SCRN MAMM (CAD)W/ANTHONY BILAT. COMPARISON: Prior exam(s) dated 07/29/2023 and 07/17/2022. FINDINGS: TISSUE DENSITY: The breast tissue is composed of scattered areas of fibroglandular density. Bilateral Breast Mammographic Findings: There are no suspicious masses, suspicious cluster of microcalcifications, architectural distortion or secondary signs of malignancy identified in either breast. A radiopaque clip is seen in the right breast. The biopsy was benign. Post biopsy site is stable. BI/SCRN MAMM (CAD)W/ANTHONY BILAT IMPRESSION: Benign screening mammogram. OVERALL FINAL ASSESSMENT BI-RADS 2: BENIGN RECOMMEND ANNUAL MAMMOGRAPHIC SCREENING. RECOMMENDATION: Routine annual follow-up in 1 Year A letter with findings and recommendations will be mailed to the patient. Reading Location: [id number] CC: Dr. Kayla Dunn MD; Marialuisa Gomes DO Assurance Auditor: Signed Normal [facility] PAP IG HPV APTIMA 16/18,45on 06-16-2024 ADEQ Comment Normal . [facility] Comment on above: Order Comment: Speci men Comment: [id number] Specimen Comment: No. of containers..01 ThinPrep Vial Result Comment: Sati sfactory for evaluation. Endocervical component may not be distinguished in cases of atrophy. Performed By: #### L 7400.0280 #### [facility] [address] [place], [place], [id number] COMM . Normal . [facility] Comment on above: Order Comment: Speci men Comment: [id number] Specimen Comment: No. of containers..01 ThinPrep Vial Performed By: #### L 7400.0280 #### [facility] [address] [place], [place], [address] COMMENT Comment Normal . [facility] Comment on above: Order Comment: Speci men Comment: [id number] Specimen Comment: No. of containers..01 ThinPrep Vial Result Comment: This liquid based ThinPrep(R) pap test was screened with the use of an image guided system. Performed By: #### L 7400.0280 #### [facility] [address] [place], [place], [address] DIAG Comment Normal . [facility] Comment on above: Order Comment: Speci men Comment: [id number] Specimen Comment: No. of containers..01 ThinPrep Vial Result Comment: NEGA TIVE FOR INTRAEPITHELIAL LESION OR MALIGNANCY. CELLULAR CHANGES ASSOCIATED WITH ATROPHY ARE PRESENT. Performed By: #### L 7400.0280 #### [facility] [address] [place], [place], [address] HPV APTIMA, HR Negative Normal Negative [facility] Comment on above: Order Comment: Speci men Comment: [id number] Specimen Comment: No. of containers..01 ThinPrep Vial Result Comment: This nucleic acid amplification test detects fourteen high- risk HPV types (16,18,31,33,35,39,45,51,52,56,58,59,66,68) without differentiation. Performed By: #### L 7400.0280 #### [facility] [address] [place], [place], [address] HPV Daja Rfx Comment Normal . [facility] Comment on above: Order Comment: Speci men Comment: [id number] Specimen Comment: No. of containers..01 ThinPrep Vial Result Comment: Crit eria not met, HPV Genotype not performed. Performed at: - [address] [id number] Instrument Mechanic: Shanique Hernandez MD, Phone: [phone] Performed at: = - [address] [id number] Instrument Mechanic: Shanique Hernandez MD, Phone: [phone] Performed By: #### L 7400.0280 #### [facility] [address] [place], [place], [id number] PAPSMR Comment Normal . [facility] Comment on above: Order Comment: Speci men Comment: [id number] Specimen Comment: No. of containers..01 ThinPrep Vial Result Comment: The Pap smear is a screening test designed to aid in the detection of premalignant and malignant conditions of the uterine cervix. It is not a diagnostic procedure and should not be used as the sole means of detecting cervical cancer. Both false-positive and false-negative reports do occur. Performed By: #### L 7400.0280 #### [facility] [address] [place], [place], [address] PERFORM Comment Normal . [facility] Comment on above: Order Comment: Speci men Comment: [id number] Specimen Comment: No. of containers..01 ThinPrep Vial Result Comment: Zulema Mckeon, Catering Operations Manager (ASCP) Performed By: #### L 7400.0280 #### [facility] [address] [place], [place], [address] Cervical or vaginal specimen microscopic examination by liquid based cytology (reportOrdered By: Kayla Dunn on 06-11-2024 Cytology report Cyto stain.thin prep Doc (Cvx/Vag) Comment . [facility] Comment on above: Criteria not met, HP V Genotype not performed.Performed at: [facility] [address] [id number] Director: Shanique Hernandez MD, Phone: [phone] at: =[facility] [address] [id number] Director: Shanique Hernandez MD, Phone: [phone] Cervical or vagninal specime n microscopic examination by cytology stain (reported asOrdered By: Kayla Dunn on 06-11-2024 Cytology report Cyto stain Doc (Cvx/Vag) Comment . [facility] Comment on above: The Pap smear is a s creening test designed to aid in thedetection of premalignant and malignant conditions of theuterine cervix. It is not a diagnostic procedure andshould not be used as the sole means of detecting cervicalcancer. Both false-positive and false-negative reports dooccur. Detection in cervical specim en of any of human papilloma virus (HPV) 16, 18, 31, 33,Ordered By: Kayla Dunn on 06-11-2024 HPV 16+18+31+33+35+39+45+5 1+52+56+58+59+66+68 DNA Probe+sig amp Ql (Cvx) Negative Negative [facility] Comment on above: This nucleic acid am plification test detects fourteen high- risk HPV types (16,18,31,33,35,39,45,51,52,56,58,59,66,68)without differentiation. Laboratory - CytologyOrdered By: Kayla Dunn on 06-11-2024 Catering Operations Manager Cyto stain Nom (Cvx/Vag) [ID] Comment . [facility] Comment on above: Tamika Mckeon Cytolog ist (ASCP) Laboratory - Miscellaneous t estsOrdered By: Kayla Dunn on 06-11-2024 Service comment (Unsp spec) [Interp] . . [facility] No Panel InformationOrdered By: Kayla Dunn on 06-11-2024 Pap Smear Specimen Adequacy Comment . [facility] Comment on above: Satisfactory for denys luation. Endocervical component may not bedistinguished in cases of atrophy. Engineering Designer Office Visit Reporton 06-11-2024 Engineering Designer Office Visit Report [facility] [address], [address] [place] [address] OFFICE VISIT Date of Service: 06/11/24 MR#: [id number] Acct: [id number] Name: SHONA DUARTE Rep #: [id number] : 1965 Provider: Dr. 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 coagulans)) cholecalciferol (vitamin D3) 125 5,000 unit PO QDAY 01/17/17 History mcg (5,000 unit) capsule B-complex with vitamin C 1 tab PO DAILY 03/10/21 06/11/24 H istory magnesium 250 mg tablet 250 mg PO DAILY 03/10/21 06/11/24 History fluoxetine 20 mg capsule 20 mg PO DAILY #90 caps 07/02/22 0 06/11/24 Rx clobetasol 0.05 % topical ointment 1 applic topical QHS #30 grams 0 06/03/23 06/11/24 Rx zinc gluconate 100 mg tablet 100 mg PO DAILY 06/03/23 06/11/24 History Is last menstrual period known: No Post menopausal: Yes Patient : No : No PFSH Medical History Preventative health care Colon cancer screening URI (upper respiratory infection) Nocturnal leg cramps Hypertension Overweight (BMI 25.0-29.9) HPV test positive Abnormal Pap smear of cervix Health care maintenance Hypomagnesemia Anxiety and depression Spinal stenosis IBS (irritable bowel syndrome) Depression Anemia Fibromyalgia Insomnia Supraventricular tachycardia Surgical History delivery delivered History of electrophysiologic study ( 09/10/13) Family History Father CAD (coronary artery disease) Diabetes Hypertension Mother CVA (cerebral vascular accident) Diabetes Aunt Breast cancer Grandmother Breast cancer Social History Smoking Status: Never smoker alcohol intake: never substance use type: does not use caffeine: Yes what type of physical activity do you participate in: none seatbelt use: always do you feel safe at home: Yes additional social history: Demetris- Retired Patient cleans homes History 2 Elective abortions Hx Para 2 Spontaneous abortions Hx # Term Pregnancies Ectopic pregnancies Hx # Pregnancies Multiple births # of living children Past Pregnancies Del. Date Name GA/Weeks Outcome Route Bth Weight Infant Gen Labor Lgth Anesthesia Del Locatn Provider FOB Unknown Niurka live - full term Unknown Chandni live - full term HPI Encounter for routine gynecological examination Details: SHONA DUARTE is a 58 year old who presents for annual exam. Last PAP: due History of abnormal PAP: no severe, hpv pos Last mammogram: History of abnormal mammogram: Colon cancer screening: referred out Other preventative health care screenings: pcp laila Female Reproductive History Questions: metorrhagia: No, sexually active: Yes, dyspareunia: No and PCB: No Menopausal Symptoms: No hot flashes, No night sweats, No weight change, No mood changes, No difficulty concentrating, No sleep problems and No change in libido ROS Const Constitutional: Reports as per HPI; Denies fatigue, increased appetite, poor appetite, night sweats, weight gain or weight loss Cardio Card: Denies chest pain Resp Resp: Denies cough or dyspnea GI GI: Reports as per HPI; Denies abdominal pain, bloating, constipation, nausea or vomiting : Reports as per HPI and other; Denies difficulty voiding, dysuria, hematuria, hot flashes, nipple discharge, pelvic pain, prolapse symptoms, urinary frequency, urinary incontinence, urinary urgency, vaginal discharge, vaginal dryness, vaginal odor or vaginal pruritus Skin Skin/Breast: Denies changing lesions, breast mass, breast pain, breast skin changes or nipple discharge Psych Psych: Denies anxiety, change in libido, depression or difficulty concentrating Exam Const General: cooperative, healthy appearing, comfortable, no acute distress, well d (more content not included)... Normal [facility] Chest PA and Lateralon 05-11 Chest PA and Lateral [facility] Services [address] [place] [address] Chest PA and Lateral MR#: [id number] Acct: [id number] Name: SHONA DUARTE Rep #: [id number] : 1965 F 58 From: Guanaco Rico MD PCP: Marialuisa Gomes DO Status: REG CLI Study: Chest PA and Lateral Date of Exam: 05/11/24 Exam# [id number] Ordering Dr: Celeste Meier [facility] MANNEQUIN MOLD MAKER- C PROCEDURE: CHEST PA AND LATERAL 05/11/2024 REASON FOR EXAM: COUGH TECHNIQUE: Frontal and lateral views of the chest. PA and lateral COMPARISON: 10/03/2018 FINDINGS: The lungs appear clear. Pulmonary vascularity appears within limits. No pleural effusion. The cardiac and mediastinal contours appear within limits. The visualized osseous structures appear within limits. RAD/Chest PA and Lateral IMPRESSION: No evidence of acute disease. Reading Location: [id number] CC: Marialuisa Gomes DO; Celeste [facility] MANNEQUIN MOLD MAKER-C Beam Assurance Auditor: Signed Normal [facility] Engineering Designer Office Visit Reporton 10-22-2023 Engineering Designer Office Visit Report [facility] [address], [address] [place] [address] OFFICE VISIT Date of Service: 10/22/23 MR#: [id number] Acct: [id number] Name: SHONA DUARTE Rep #: [id number] : 1965 Provider: Dr. Kayla marques MD Age/Sex: 58/F Location: [facility] [place] Status: Signed Intake Vital Signs 09/04/23 14:36 10/22/23 15:04 10/22/23 15:05 Height 5 ft 3 in 5 ft 3 in 5 ft 3 in Weight: 168 lb BMI 29.7 BP 138/81 H Pulse 83 Intake Visit Reasons: 2 M F/U lichen sclerosus Institutional Asset Manager Required: No Is patient in pain?: No Allergies formaldehyde Allergy (Verified 10/22/23 15:02) Unknown latex Allergy (Verified 10/22/23 15:02) Unknown neomycin Allergy (Verified 10/22/23 15:02) unknown Sulfa (Sulfonamide Antibiotics) Allergy (Verified 10/22/23 15:02) Unknown codeine Adverse Reaction (Verified 10/22/23 15:02) Unknown Medications ???Medication ???Instructions ???Recorded ???Confirmed ???Type Bacillus coagulans 250 million cell PO 01/17/17 10/22/23 History cell chewable tablet (Probiotic (B. coagulans)) cholecalciferol (vitamin D3) 125 5,000 unit PO QDAY 01/17/17 10/22/23 History mcg (5,000 unit) capsule B-complex with vitamin C 1 tab PO DAILY 01/28/22 09/10/24 History magnesium 250 mg tablet 250 mg PO DAILY 03/10/21 10/22/23 History fluoxetine 20 mg capsule 20 mg PO DAILY #90 caps 07/02/22 10/22/23 Rx clobetasol 0.05 % topical ointment 1 applic topical QHS #30 grams 06/03/23 10/22/23 Rx zinc gluconate 100 mg tablet 100 mg PO DAILY 06/03/23 10/22/23 History PFSH Medical History Preventative health care Colon cancer screening URI (upper respiratory infection) Nocturnal leg cramps Hypertension Overweight (BMI 25.0-29.9) HPV test positive Abnormal Pap smear of cervix Health care maintenance Hypomagnesemia Anxiety and depression Spinal stenosis IBS (irritable bowel syndrome) Depression Anemia Fibromyalgia Insomnia Supraventricular tachycardia Surgical History delivery delivered History of electrophysiologic study ( 09/10/13) Family History Father CAD (coronary artery disease) Diabetes Hypertension Mother CVA (cerebral vascular accident) Diabetes Aunt Breast cancer Grandmother Breast cancer Social History Smoking Status: Never smoker alcohol intake: never substance use type: does not use caffeine: Yes what type of physical activity do you participate in: none seatbelt use: always do you feel safe at home: Yes 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 she dneies any ithcing or burning,. she has bene using the clobetasol freqently but has decreased use recetnly. History 2 Elective abortions Hx Para 2 Spontaneous abortions Hx # Term Pregnancies Ectopic pregnancies Hx # Pregnancies Multiple births # of living children Past Pregnancies Del. Date Name GA/Weeks Outcome Route Bth Weight Infant Gen Labor Lgth Anesthesia Del Locatn Provider FOB Unknown Niurka live - full term Unknown Chandni live - full term ROS Const Constitutional: Denies fatigue, fever(s), headache(s), increased appetite, poor appetite, weight gain or weight loss Cardio Card: Denies chest pain Resp Resp: Denies cough or dyspnea GI GI: Reports as per HPI; Denies abdominal pain, constipation, nausea or vomiting : Reports as per HPI; Denies difficulty voiding, dysuria, nipple discharge, urinary frequency, urinary incontinence, urinary hesitancy, urinary urgency, vaginal discharge, vaginal dryness, vaginal odor or vaginal pruritus Skin Skin/Breast: Denies change in hair, breast mass, breast pain, breast skin changes or nipple discharge Exam Const General: cooperative, healthy appearing, comfortable, no acute distress and well developed Nutritional Appearance: average body habitus Orientation: alert HENMT Head: normal to inspection and normocephalic Neck Neck: normal visual inspection and trachea midline Thyroid: thyroid normal Resp Effort Inspection: normal respiratory effort GI Inspection: normal to inspection and non-distended Palpation: soft and no hepatosplenomegaly External Female Exam: abnormal external appearance (atrophy blunting of labia, no lesions) and normal appearance of the urethra Urethra: normal appearance of the urethra, normal palpation and no discharge Skin General: no rashes or lesions noted Cod (more content not included)... Normal [facility] Insulin Levelon 09-05-2023 INSULIN,FASTING 8.7 uIU/mL Normal 2.6-24.9 [facility] Comment on above: Result Comment: Perf ormed at: [facility] [place] [id number] Instrument Mechanic: Chase Alex PhD, Phone: [phone] Performed By: #### L 501.9520, L501.9985, L3300.3500, L503.0105, L501.5200, L506.1000 #### [facility] [address] [place] [address]. [place], [address] Hemoglobin A1con 09-04-2023 HbA1c (Bld) [Mass fraction] 4.7 % Normal 3.8-5.6 [facility] Comment on above: Result Comment: Norm al < 5.7 % Prediabetic 5.7 - 6.4 % Diabetic >or= 6.5 % Please note range changes. Performed By: #### L 501.9520, L501.9985, L3300.3500, L503.0105, L501.5200, L506.1000 #### [facility] [address] [place], [address] Magnesiumon 09-04-2023 Magnesium [Mass/Vol] 2.6 mg/dL Normal 1.6-2.6 [facility] Comment on above: Performed By: #### L 501.9520, L501.9985, L3300.3500, L503.0105, L501.5200, L506.1000 #### [facility] [address] [place], [address] Engineering Designer Office Visit Reporton 09-04-2023 Engineering Designer Office Visit Report [facility] [place] [address] [place] [address] OFFICE VISIT Date of Service: 09/04/23 MR#: [id number] Acct: [id number] Name: SHONA DUARTE Rep #: [id number] : 1965 Provider: Dr. Kayla marques MD Age/Sex: 57/F Location: [facility] Status: Signed Intake Vital Signs 06/03/23 13:05 09/04/23 14:04 09/04/23 14:36 Height 5 ft 3 in 5 ft 3 in 5 ft 3 in Weight: 167 lb BMI 29.5 BP 121/73 H Intake Visit Reasons: 6-8 WK F U Allergies formaldehyde Allergy (Verified 09/04/23 14:04) Unknown latex Allergy (Verified 09/04/23 14:04) Unknown neomycin Allergy (Verified 09/04/23 14:04) unknown Sulfa (Sulfonamide Antibiotics) Allergy (Verified 09/04/23 14:04) Unknown codeine Adverse Reaction (Verified 09/04/23 14:04) Unknown Medications ???Medication ???Instructions ???Recorded ???Confirmed ???Type Bacillus coagulans 250 million cell PO 01/17/17 09/04/23 History cell chewable tablet (Probiotic (B. coagulans)) cholecalciferol (vitamin D3) 125 5,000 unit PO QDAY 01/17/17 09/04/23 History mcg (5,000 unit) capsule B-complex with vitamin C 1 tab PO DAILY 03/10/21 09/04/23 History magnesium 250 mg tablet 250 mg PO DAILY 03/10/21 09/04/23 History fluoxetine 20 mg capsule 20 mg PO DAILY #90 caps 07/02/22 09/04/23 Rx clobetasol 0.05 % topical ointment 1 applic topical QHS #30 grams 06/03/23 09/04/23 Rx zinc gluconate 100 mg tablet 100 mg PO DAILY 06/03/23 09/04/23 History PFSH Medical History Preventative health care Colon cancer screening URI (upper respiratory infection) Nocturnal leg cramps Hypertension Overweight (BMI 25.0-29.9) HPV test positive Abnormal Pap smear of cervix Health care maintenance Hypomagnesemia Anxiety and depression Spinal stenosis IBS (irritable bowel syndrome) Depression Anemia Fibromyalgia Insomnia Supraventricular tachycardia Surgical History delivery delivered History of electrophysiologic study ( 09/10/13) Family History Father CAD (coronary artery disease) Diabetes Hypertension Mother CVA (cerebral vascular accident) Diabetes Aunt Breast cancer Grandmother Breast cancer Social History Smoking Status: Never smoker alcohol intake: never substance use type: does not use caffeine: Yes what type of physical activity do you participate in: none seatbelt use: always do you feel safe at home: Yes 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 She was using the clobetasol but not using it anywhere other than where it was itching. She has had resolution of itching but she still has some white patches that she was not using the clobetasol and she did not understand that she could use it there. She would like to continue using it and then follow-up in 6 to 8 weeks to see if this resolves. She denies any bleeding or abnormal discharge. History 2 Elective abortions Hx Para 2 Spontaneous abortions Hx # Term Pregnancies Ectopic pregnancies Hx # Pregnancies Multiple births # of living children Past Pregnancies Del. Date Name GA/Weeks Outcome Route Bth Weight Gen Labor Lgth Anesthesia Del Locatn Provider FOB Unknown Niurka live - full term Unknown Chandni live - full term ROS Const Constitutional: Denies fatigue, fever(s), headache(s), increased appetite, poor appetite, weight gain or weight loss GI GI: Reports as per HPI; Denies abdominal pain, constipation, nausea or vomiting : Reports as per HPI Exam Const General: cooperative, healthy appearing, comfortable, no acute distress and well developed Orientation: alert HENMT Head: normal to inspection and normocephalic Ears: hearing grossly normal bilaterally and external ears normal Nose: external nose normal and nares normal Face and sinus: normal facial exam Neck Neck: normal visual inspection, no lymphadenopathy and trachea midline Thyroid: thyroid normal Resp Effort Inspection: normal respiratory effort Musc Other: gross motor intact no deficits, full bilateral strength Skin General: no rashes or lesions noted Neuro Motor: muscle tone normal throughout Coding Level of Care Code Off vis,est,level 3 Diagnoses Lichen sclerosus L90.0 Preventative health care Z00.00 Colon cancer screening Z12.11 Viral illness B34.9 URI (upper respiratory infection) J06.9 Nocturnal leg cramps G47.62 Hypertens (more content not included)... Normal [facility] Thyroid Stim Hormone (TSH)on 09-04-2023 TSH 1.88 uIU/mL Normal 0.358-3.74 [facility] Comment on above: Performed By: #### L 501.9520, L501.9985, L3300.3500, L503.0105, L501.5200, L506.1000 #### [facility] [address] [place], [address] Vitamin B12on 09-04-2023 Cobalamin (Vitamin B12) [Mass/Vol] 675 pg/mL Normal 211-911 [facility] Comment on above: Performed By: #### L 501.9520, L501.9985, L3300.3500, L503.0105, L501.5200, L506.1000 #### [facility] [address] [place], [address] Vitamin D,25 Hydroxyon 09-03 Vitamin D 25-OH 61.3 ng/mL Normal [facility] Comment on above: Result Comment: Claudia min D 25(OH) Status Range Deficiency <20 ng/mL (50nmol/L) Insufficiency 20 - 30 ng/mL (50 - 75 nmol/L) Sufficiency 30 - 100 ng/mL (75 - 250 nmol/L) Toxicity >100 ng/mL (>250 nmol/L) Performed By: #### L 501.9520, L501.9985, L3300.3500, L503.0105, L501.5200, L506.1000 #### [facility] [address] [place], [address] Cervical or vaginal specimen microscopic examination by liquid based cytology (reportOrdered By: Kayla Dunn on 06-03-2023 Cytology report Cyto stain.thin prep Doc (Cvx/Vag) Comment . [facility] Comment on above: Criteria not met, HP V Genotype not performed.Performed at: - [address] [id number] Director: Shanique Hernandez MD, Phone: [phone] at: =[facility] [id number] Director: Shanique Hernandez MD, Phone: [phone] Cervical or vagninal specime n microscopic examination by cytology stain (reported asOrdered By: Kayla Dunn on 06-03-2023 Cytology report Cyto stain Doc (Cvx/Vag) Comment . [facility] Comment on above: The Pap smear is a s creening test designed to aid in thedetection of premalignant and malignant conditions of theuterine cervix. It is not a diagnostic procedure andshould not be used as the sole means of detecting cervicalcancer. Both false-positive and false-negative reports dooccur. Culture, urineOrdered By: Asia Dunn on 06-03-2023 Bacteria identified Cx Nom (U) Culture exhibits no growth. [facility] Detection in cervical specim en of any of human papilloma virus (HPV) 16, 18, 31, 33,Ordered By: Kayla Dunn on 06-03-2023 HPV 16+18+31+33+35+39+45+5 1+52+56+58+59+66+68 DNA Probe+sig amp Ql (Cvx) Negative Negative [facility] Comment on above: This nucleic acid am plification test detects fourteen high- risk HPV types (16,18,31,33,35,39,45,51,52,56,58,59,66,68)without differentiation. Laboratory - Chemistry and C hemistry - challengeon 06-03-2023 Bilirubin Ql (U) Negative [facility] Glucose Ql (U) Negative [facility] Ketones Ql (U) Negative [facility] pH (U) 6.5 [pH] [facility] Laboratory - CytologyOrdered By: Kayla Dunn on 06-03-2023 Catering Operations Manager Cyto stain Nom (Cvx/Vag) [ID] Comment . [facility] Comment on above: Marion Figueroa, Cytotec hnologist (ASCP) Laboratory - Hematology and Cell countson 06-03-2023 Hemoglobin Ql (U) Negative [facility] - Miscellaneous t estsOrdered By: Kayla Dunn on 06-03-2023 Service comment (Unsp spec) [Interp] . . [facility] - Specimen inform ationon 06-03-2023 Clarity (U) Clear [facility] Color (U) Yellow [facility] - Urinalysison Nitrite Ql (U) Negative [facility] Protein Ql (U) Negative [facility] No Panel Informationon 06-[address] [facility] Thin prep Papanicolaou smear with manual screeningOrdered By: Kayla Dunn on 06-03-2023 Thin prep Papanicolaou smear with manual screening Comment . [facility] Comment on above: NEGATIVE FOR INTRAEP ITHELIAL LESION OR MALIGNANCY.CELLULAR CHANGES ASSOCIATED WITH ATROPHY ARE PRESENT. This liquid based Th inPrep(R) pap test was screened withthe use of an image guided system. Absolute lymphocyte countOrd ered By: Sandeep Marc on 04-04-2023 Lymphocytes Auto (Unsp spec) [#/Vol] 1.57 10*3/uL 0.83-4.51 [facility] Automated lymphocyte count a s percentage of total leukocytesOrdered By: Sandeep Marc on 04-04-2023 Lymphocytes/100 WBC Auto (Unsp spec) 32.4 % 19-41 [facility] Basophil percentageOrdered B y: Sandeep Macr on 04-04-2023 Basophils/100 WBC (Bld) 0.2 % 0-1 [facility] Bilirubin [Mass/Vol] 0.60 mg/dL 0.20-1.00 [facility] Comment on above: For patients on eltr ombopag therapy, use of Dimension [place] TBIL is not recommended. Chloride [Moles/Vol] 106 mmol/L 98-107 [facility] Cholesterol [Mass/Vol] 186 mg/dL <200 [facility] Comment on above: <200 mg/dL Desirable 200-240 mg/dL Borderline >240 mg/dL High Risk Eosinophils/100 WBC (Bld) 2.9 % 0-5 [facility] Glucose [Mass/Vol] 91 mg/dL 74-106 [facility] Hemoglobin (Bld) [Mass/Vol] 13.5 g/dL 12.0-15.0 [facility] Monocytes/100 WBC (Bld) 7.8 % 0-10 [facility] Neutrophils (Bld) [#/Vol] 2.7 10*3/uL 2.0-7.7 [facility] Neutrophils/100 WBC (Bld) 56.5 % 47-70 [facility] Potassium [Moles/Vol] 4.0 mmol/L 3.5-5.1 [facility] Protein [Mass/Vol] 6.9 g/dL 6.4-8.2 [facility] Sodium [Moles/Vol] 137 mmol/L 136-145 [facility] Triglyceride [Mass/Vol] 83 mg/dL <199 [facility] Comment on above: The drugs N-Acetylcy steine and Metamizole may falsely depress this assay.Serum Triglycerides Reference Interval Normal <150 mg/dL Borderline high 150 - 199 mg/dL High 200 - 499 mg/dL Very High > or = 500 mg/dL WBC (Bld) [#/Vol] 4.9 10*3/uL 4.4-11.0 [facility] Determination of erythrocyte mean corpuscular volume (MCV)Ordered By: Sandeep Marc on 04-04-2023 MCV (RBC) [Entitic vol] 90.3 fL 81-99 [facility] Erythrocyte distribution wid th ratioOrdered By: [facility] Morganvickey on 04-04-2023 Erythrocyte distribution width (RBC) [Ratio] 13.1 % 11.6-14.6 [facility] Erythrocyte distribution wid th standard deviationOrdered By: [facility] Eddievickey on 04-04-2023 Erythrocyte distribution width (RBC) [Entitic vol] 42.9 fL 35.1-43.9 [facility] Hematocrit Auto (Bld) [Volum e fraction]Ordered By: [facility] Morganvickey on 04-04-2023 Hematocrit (Bld) [Volume fraction] 42.1 % 37-47 [facility] Immature granulocytes/100 WB C Auto (Bld)Ordered By: [facility] Morganvickey on 04-04-2023 Immature granulocytes/100 WBC (Bld) 0.200 % 0.0-0.9 [facility] Comment on above: IG% - Immature Granu locytes (promyelocytes, myelocytes and metamyelocytes) > 1% indicates that a LEFT SHIFT is Present. Laboratory - Chemistry and C hemistry - challengeOrdered By: [facility] Morganvickey on 04-04-2023 Albumin/Globulin [Mass ratio] 1.1 {ratio} 0.9-2.4 [facility] ALP [Catalytic activity/Vol] 82 U/L 45-117 [facility] ALT [Catalytic activity/Vol] 30 U/L 13-56 [facility] Cholesterol in HDL [Mass/Vol] 62 mg/dL >40 [facility] Comment on above: The drugs N-Acetylcy steine and Metamizole may falsely depress this assay. Reference Range HDL <40 mg/dL Low HDL Cholesterol HDL >or= 60 mg/dL High HDL Cholesterol Cholesterol in LDL [Mass/Vol] 107 mg/dL 0-130 [facility] CO2 [Moles/Vol] 31.0 mmol/L 21.0-32.0 [facility] Globulin (S) [Mass/Vol] 3.3 g/dL 2.2-4.2 [facility] Urea nitrogen/Creatinine [Mass ratio] 19.1 mg/mg 10-20 [facility] - Hematology and Cell countsOrdered By: Sandeep Marc on 04-04-2023 MCH (RBC) [Entitic mass] 29.0 pg 27.0-32.0 [facility] MCHC (RBC) [Mass/Vol] 32.1 g/dL 32-36 [facility] Nucleated RBC/100 WBC (Bld) [Ratio] 0 % 0-5 [facility] Platelet mean volume (Bld) [Entitic vol] 9.6 fL 6.2-12.0 [facility] Platelets (Bld) [#/Vol] 211 10*3/uL 150-450 [facility] No Panel InformationOrdered By: Sandeep Marc on 04-04-2023 Estimated GFR (MDRD) Amer 96 mL/min >60 [facility] Comment on above: GFR Calc Estimated GFR (MDRD) Non-Af Amer 79 mL/min >60 [facility] Comment on above: Non- GFR Calc VLDL Cholesterol 17 mg/dL 5-40 [facility] RBC Auto (Bld) [#/Vol]Ordere d By: Sandeep Marc on 04-04-2023 RBC (Bld) [#/Vol] 4.66 10*6/uL 4.2-5.4 [facility] Serum or plasma calcium danis urement (mass/volume)Ordered By: Sandeep Marc on 04-04-2023 Calcium [Mass/Vol] 9.5 mg/dL 8.5-10.1 [facility] Serum or plasma creatinine m easurement (mass/volume)Ordered By: Sandeep Marc on 04-04-2023 Creatinine [Mass/Vol] 0.79 mg/dL 0.55-1.02 [facility] Comment on above: The validity of the calculated GFR & GFRAA in patients over 70 years has not been determined. Clinical correlation is essential. Serum or plasma urea nitroge n measurement (mass/volume)Ordered By: Sandeep Marc on 04-04-2023 Urea nitrogen [Mass/Vol] 15 mg/dL 7-18 [facility] Thin prep Papanicolaou smear with manual screeningOrdered By: Sandeep Marc on 04-04-2023 Thin prep Papanicolaou smear with manual screening 3.6 g/dL 3.2-5.0 [facility] Thin prep Papanicolaou smear with manual screening 21 U/L 15-37 [facility] Thin prep Papanicolaou smear with manual screening 0 5-15 [facility] Basophil percentageOrdered B y: Sandeep Marc on 07-02-2022 Bilirubin [Mass/Vol] 0.50 mg/dL 0.20-1.00 [facility] Comment on above: For patients on eltr ombopag therapy, use of Dimension [place] TBIL is not recommended. Chloride [Moles/Vol] 103 mmol/L 98-107 [facility] Glucose [Mass/Vol] 87 mg/dL 74-106 [facility] Potassium [Moles/Vol] 4.2 mmol/L 3.5-5.1 [facility] Protein [Mass/Vol] 6.7 g/dL 6.4-8.2 [facility] Sodium [Moles/Vol] 140 mmol/L 136-145 [facility] Laboratory - Chemistry and C hemistry - challengeOrdered By: Sandeep Marc on 07-02-2022 ALP [Catalytic activity/Vol] 99 U/L 45-117 [facility] ALT [Catalytic activity/Vol] 26 U/L 13-56 [facility] CO2 [Moles/Vol] 31.0 mmol/L 21.0-32.0 [facility] Globulin (S) [Mass/Vol] 3.0 g/dL 2.2-4.2 [facility] Magnesium [Mass/Vol] 2.6 mg/dL 1.6-2.6 [facility] Urea nitrogen/Creatinine [Mass ratio] 19.8 mg/mg 10-20 [facility] No Panel InformationOrdered By: Sandeep Marc on 07-02-2022 Estimated GFR (MDRD) Amer 101 mL/min >60 [facility] Comment on above: GFR Calc Estimated GFR (MDRD) Non-Af Amer 83 mL/min >60 [facility] Comment on above: Non- GFR Calc Serum or plasma albumin danis urement (mass/volume)Ordered By: Sandeep Marc on 07-02-2022 Albumin [Mass/Vol] 3.7 g/dL 3.2-5.0 [facility] Serum or plasma albumin/glob ulin mass ratioOrdered By: Sandeep Marc on 07-02-2022 Albumin/Globulin [Mass ratio] 1.2 {ratio} 0.9-2.4 [facility] Serum or plasma calcium danis urement (mass/volume)Ordered By: Sandeep Marc on 07-02-2022 Calcium [Mass/Vol] 9.3 mg/dL 8.5-10.1 [facility] Serum or plasma creatinine m easurement (mass/volume)Ordered By: Sandeep Marc on 07-02-2022 Creatinine [Mass/Vol] 0.76 mg/dL 0.55-1.02 [facility] Comment on above: The validity of the calculated GFR & GFRAA in patients over 70 years has not been determined. Clinical correlation is essential. Serum or plasma urea nitroge n measurement (mass/volume)Ordered By: Sandeep Marc on 07-02-2022 Urea nitrogen [Mass/Vol] 15 mg/dL 7-18 [facility] Thin prep Papanicolaou smear with manual screeningOrdered By: Sandeep Marc on 07-02-2022 Thin prep Papanicolaou smear with manual screening 24 U/L 15-37 [facility] Thin prep Papanicolaou smear with manual screening 6 5-15 [facility] Absolute lymphocyte countOrd ered By: Dr. Marc on 04-30-2022 Lymphocytes Auto (Unsp spec) [#/Vol] 1.46 10*3/uL 0.83-4.51 [facility] Basophil percentageOrdered B y: Dr. Marc on 04-30-2022 Basophils/100 WBC (Bld) 0.6 % 0-1 [facility] Eosinophils/100 WBC (Bld) 2.8 % 0-5 [facility] Neutrophils (Bld) [#/Vol] 3.3 10*3/uL 2.0-7.7 [facility] Neutrophils/100 WBC (Bld) 61.7 % 47-70 [facility] WBC (Bld) [#/Vol] 5.3 10*3/uL 4.4-11.0 [facility] Blood erythrocytes count (nu mber/volume)Ordered By: Dr. Marc on 04-30-2022 RBC (Bld) [#/Vol] 4.73 10*6/uL 4.2-5.4 [facility] Blood hemoglobin measurement (mass/volume)Ordered By: Dr. Marc on 04-30-2022 Hemoglobin (Bld) [Mass/Vol] 14.0 g/dL 12.0-15.0 [facility] Blood lymphocytes/100 leukoc ytesOrdered By: Dr. Marc on 04-30-2022 Lymphocytes/100 WBC (Bld) 27.4 % 19-41 [facility] Blood monocytes/100 leukocyt esOrdered By: Dr. Marc on 04-30-2022 Monocytes/100 WBC (Bld) 7.1 % 0-10 [facility] Blood platelet mean volumeOr dered By: Dr. Marc on 04-30-2022 Platelet mean volume (Bld) [Entitic vol] 10.1 fL 6.2-12.0 [facility] Determination of erythrocyte mean corpuscular volume (MCV)Ordered By: Dr. Marc on 04-30-2022 MCV (RBC) [Entitic vol] 91.3 fL 81-99 [facility] Hematocrit Auto (Bld) [Volum e fraction]Ordered By: Dr. Marc on 04-30-2022 Hematocrit (Bld) [Volume fraction] 43.2 % 37-47 [facility] - Hematology and Cell countsOrdered By: Dr. Marc on 04-30-2022 Erythrocyte distribution width (RBC) [Entitic vol] 41.8 fL 35.1-43.9 [facility] Erythrocyte distribution width (RBC) [Ratio] 12.7 % 11.6-14.6 [facility] Immature granulocytes/100 WBC (Bld) 0.400 % 0.0-0.9 [facility] Comment on above: IG% - Immature Granu locytes (promyelocytes, myelocytes and metamyelocytes) > 1% indicates that a LEFT SHIFT is Present. MCH (RBC) [Entitic mass] 29.6 pg 27.0-32.0 [facility] Nucleated RBC/100 WBC (Bld) [Ratio] 0 % 0-5 [facility] MCHC Auto (RBC) [Mass/Vol]Or dered By: Dr. Marc on 04-30-2022 MCHC (RBC) [Mass/Vol] 32.4 g/dL 32-36 [facility] Platelets bldOrdered By: Dr. Marc on 04-30-2022 Platelets (Bld) [#/Vol] 232 10*3/uL 150-450 [facility] Whole blood hemoglobin A1c/t otal hemoglobin ratio (mass fraction)Ordered By: Dr. Marc on 04-30-2022 HbA1c (Bld) [Mass fraction] 4.8 % 3.8-5.6 [facility] Comment on above: Normal < 5.7 % Predi abetic 5.7 - 6.4 % Diabetic >or= 6.5 % Please note range changes. Basophil percentageOrdered B y: Dr. Dunn on 04-09-2022 Cholesterol [Mass/Vol] 186 mg/dL <200 [facility] Comment on above: <200 mg/dL Desirable 200-240 mg/dL Borderline >240 mg/dL High Risk Glucose [Mass/Vol] 104 mg/dL 74-106 [facility] Comment on above: Fasting Glucose resu lt from 100 to 125 mg/dL suggests IMPAIRED HOMEOSTASIS per A.D.A. criteria. Triglyceride [Mass/Vol] 129 mg/dL <199 [facility] Comment on above: The drugs N-Acetylcy steine and Metamizole may falsely depress this assay.Serum Triglycerides Reference Interval Normal <150 mg/dL Borderline high 150 - 199 mg/dL High 200 - 499 mg/dL Very High > or = 500 mg/dL No Panel InformationOrdered By: Dr. Dunn on 04-09-2022 Thyroid Stimulating Hormone (TSH) 2.72 uIU/mL 0.358-3.74 [facility] Vitamin D 25-Hydroxy 56.8 ng/mL [facility] Comment on above: Vitamin D 25(OH) Sta tus Range Deficiency <20 ng/mL (50nmol/L) Insufficiency 20 - 30 ng/mL (50 - 75 nmol/L) Sufficiency 30 - 100 ng/mL (75 - 250 nmol/L) Toxicity >100 ng/mL (>250 nmol/L) Serum or plasma cholesterol in HDL measurement (mass/volume)Ordered By: Dr. Dunn on 04-09-2022 Cholesterol in HDL [Mass/Vol] 60 mg/dL >40 [facility] Comment on above: The drugs N-Acetylcy steine and Metamizole may falsely depress this assay. Reference Range HDL <40 mg/dL Low HDL Cholesterol HDL >or= 60 mg/dL High HDL Cholesterol Serum or plasma cholesterol in VLDL measurement (mass/volume)Ordered By: Dr. Dunn on 04-09-2022 Cholesterol in VLDL [Mass/Vol] 26 mg/dL 5-40 [facility] Serum or plasma low density lipoprotein (LDL) cholesterol measurement (mass/volume)Ordered By: Dr. Dunn on 04-09-2022 Cholesterol in LDL [Mass/Vol] 100 mg/dL 0-130 [facility] Cervical or vagninal specime n microscopic examination by cytology stain (reported asOrdered By: Dr. Dunn on 03-20-2022 Cytology report Cyto stain Doc (Cvx/Vag) Comment . [facility] Comment on above: The Pap smear is a s creening test designed to aid in thedetection of premalignant and malignant conditions of theuterine cervix. It is not a diagnostic procedure andshould not be used as the sole means of detecting cervicalcancer. Both false-positive and false-negative reports dooccur. Cervical specimen human nati lloma virus (HPV) type 16 DNA detection by probe with sigOrdered By: Dr. Dunn on 03-20-2022 HPV 16 DNA Probe+sig amp Ql (Cvx) Negative Negative [facility] Detection in cervical specim en of any of human papilloma virus (HPV) 16, 18, 31, 33,Ordered By: Dr. Dunn on 03-20-2022 HPV 16+18+31+33+35+39+45+5 1+52+56+58+59+66+68 DNA Probe+sig amp Ql (Cvx) Positive Negative [facility] Comment on above: This nucleic acid am plification test detects fourteen high- risk HPV types (16,18,31,33,35,39,45,51,52,56,58,59,66,68)without differentiation. Laboratory - CytologyOrdered By: Dr. Dunn on 03-20-2022 Catering Operations Manager Cyto stain Nom (Cvx/Vag) [ID] Comment . [facility] Comment on above: Tita Austin, Cyto technologist (ASCP) Laboratory - Miscellaneous t estsOrdered By: Dr. Dunn on 03-20-2022 Service comment (Unsp spec) [Interp] Comment . [facility] Comment on above: This liquid based Th inPrep(R) pap test was screened withthe use of an image guided system. Service comment (Unsp spec) [Interp] . . [facility] Liquid-based cerv Pap + CT/G C by HEMALATHA w reflex to high-risk HPV for ASCUSOrdered By: Dr. Dunn on 03-20-2022 Cytology report Cyto stain.thin prep Doc (Cvx/Vag) Comment . [facility] Comment on above: Criteria met, see HP V Genotype results. No Panel InformationOrdered By: Dr. Dunn on 03-20-2022 HPV Type 18 Comment Negative Negative [facility] Comment on above: Performed at: WB - [facility] [address] [id number] Director: Shanique Hernandez MD, Phone: [phone] at: =G - [facility] [address] [id number] Director: Shanique Hernandez MD, Phone: [phone] Pathology report final diagnosis Narrative Comment . [facility] Comment on above: NEGATIVE FOR INTRAEP ITHELIAL LESION OR MALIGNANCY.CELLULAR CHANGES ASSOCIATED WITH ATROPHY ARE PRESENT. Vital Signs Date Time Vital Sign Value Performing Clinician Mahi bragg 06-11-2024 11:14-0400 Body height 160.02 cm Marialuisa Eliseo DO Work Phone: [facility] 06-11-2024 11:12-0400 Body mass index (BMI) [Ratio] 29.9 kg/m2 Marialuisa Eliseo DO Work Phone: [facility] 06-11-2024 11:12-0400 Body weight 76.77 kg Marialuisa Eliseo DO Work Phone: [facility] 06-11-2024 11:12-0400 Diastolic blood pressure 74 mm[Hg] Marialuisa Eliseo DO Work Phone: [facility] 06-11-2024 11:12-0400 Systolic blood pressure 124 mm[Hg] Marialuisa Eliseo DO Work Phone: [facility] 06-03-2023 13:05-0400 Body height 160.[address] Sandeep Marc Work Phone: [facility] 06-03-2023 13:04-0400 Body mass index (BMI) [Ratio] 29.2 kg/m2 Dr. Sandeep Marc Work Phone: [facility] 06-03-2023 13:04-0400 Body weight 74.[address] Sandeep Marc Work Phone: [facility] 06-03-2023 13:04-0400 Diastolic blood pressure 83 mm[Hg] Dr. Sandeep Marc Work Phone: [facility] 06-03-2023 13:04-0400 Systolic blood pressure 130 mm[Hg] Dr. Sandeep Marc Work Phone: [facility] 03-07-2023 14:15-0500 Body mass index (BMI) [Ratio] 29.6 kg/m2 Dr. Sandeep Marc Work Phone: [facility] 03-07-2023 14:15-0500 Body temperature 97.3 [degF] Dr. Sandeep Marc Work Phone: [facility] 03-07-2023 14:15-0500 Body weight 75.[address] Sandeep Marc Work Phone: [facility] 03-07-2023 14:15-0500 Diastolic blood pressure 72 mm[Hg] Dr. Sandeep Marc Work Phone: [facility] 03-07-2023 14:15-0500 Heart rate 77 /min Dr. Sandeep Marc Work Phone: [facility] 03-07-2023 14:15-0500 Respiratory rate 16 /min Dr. Sandeep Marc Work Phone: [facility] 03-07-2023 14:15-0500 SaO2% (BldA) [Mass fraction] 98 % Dr. Sandeep Marc Work Phone: [facility] 03-07-2023 14:15-0500 Systolic blood pressure 120 mm[Hg] Dr. Sandeep Marc Work Phone: [facility] 07-02-2022 11:19-0400 Body height 162.56 cm veena Marc [facility] 07-02-2022 11:19-0400 Body mass index (BMI) [Ratio] 28.3 kg/m2 veena Marc [facility] 07-02-2022 11:19-0400 Body temperature 98.4 [degF] veena Marc [facility] 07-02-2022 11:19-0400 Body weight 74.84 kg veena Marc [facility] 07-02-2022 11:19-0400 Diastolic blood pressure 66 mm[Hg] veena Marc [facility] 07-02-2022 11:19-0400 Heart rate 67 /min veena Marc [facility] 07-02-2022 11:19-0400 Respiratory rate 16 /min veena Marc [facility] 07-02-2022 11:19-0400 SaO2% (BldA) [Mass fraction] 96 % [facility] 07-02-2022 11:19-0400 Systolic blood pressure 110 mm[Hg] veena Marc [facility] 05-17-2022 15:58-0400 Body mass index (BMI) [Ratio] 28.5 kg/m2 MD Sandeep Jacintovickey [facility] 05-17-2022 15:58-0400 Body weight 75.4 kg veena Marc [facility] 05-17-2022 15:58-0400 Diastolic blood pressure 68 mm[Hg] [facility] 05-17-2022 15:58-0400 Systolic blood pressure 100 mm[Hg] veena Marc [facility] 04-30-2022 11:16-0400 Body height 162.56 cm [facility] 04-30-2022 11:16-0400 Body mass index (BMI) [Ratio] 28.4 kg/m2 [facility] 04-30-2022 11:16-0400 Body temperature 97.4 [degF] [facility] 04-30-2022 11:16-0400 Body weight 75.06 kg [facility] 04-30-2022 11:16-0400 Diastolic blood pressure 92 mm[Hg] [facility] 04-30-2022 11:16-0400 Heart rate 71 /min [facility] 04-30-2022 11:16-0400 Respiratory rate 18 /min [facility] 04-30-2022 11:16-0400 SaO2% (BldA) [Mass fraction] 99 % [facility] 04-30-2022 11:16-0400 Systolic blood pressure 148 mm[Hg] [facility] 03-20-2022 14:41-0500 Body height 162.56 cm [facility] 03-20-2022 14:40-0500 Body mass index (BMI) [Ratio] 28.3 kg/m2 [facility] 03-20-2022 14:40-0500 Body weight 74.84 kg [facility] 03-20-2022 14:40-0500 Diastolic blood pressure 84 mm[Hg] [facility] 03-20-2022 14:40-0500 Systolic blood pressure 145 mm[Hg] [facility] Encounters Encounter Date Encounter Type Care Provider Facility Start: 08-03-2024 End: 08-03-2024 ambulatory Marialuisa Gomes DO Work Phone: -Outpatient Breast Imaging Start: 08-03-2024 End: 08-03-[address] Kayla Dunn MD -Outpatient Breast Imaging Work Phone: Start: 08-03-2024 End: 08-03-2024 ambulatory Kayla Dunn Facility:[facility] Start: 06-11-2024 End: 06-11-2024 ambulatory Marialuisa Gomes DO Work Phone: [facility] Work Phone: Start: 06-11-2024 End: 06-11-[address] Kayla Dunn MD -Laboratory, Specimen Work Phone: Start: 06-11-2024 Encounter for gynecological examination (general) (routine) without abnormal findings Kayla Dunn [facility] Start: 06-11-2024 End: 06-11-[address] Kayla Dunn MD -[facility] [place] Work Phone: Start: 06-11-2024 End: 06-11-[address] Kayla Dunn MD [facility] Start: 06-11-2024 End: 06-11-2024 ambulatory Marialuisa SAWYER Facility:[facility] Start: 06-11-2024 End: 06-11-2024 ambulatory Kayla Dunn Facility:[facility] Start: 05-11-2024 End: 05-11-2024 ambulatory Marialuisa Gomes DO Work Phone: [facility] Work Phone: Start: 05-11-2024 End: 05-11-2024 Patient encounter procedure Celeste Renea MANNEQUIN MOLD MAKER-C -Radiology, [facility] Work Phone: Start: 05-11-2024 End: 05-11-2024 ambulatory Marialuisa Eliseo VS Facility:[facility] Start: 10-22-2023 End: 10-22-2023 ambulatory Kayla Kirkpatrickaleshaony Facility:[facility] Start: 09-04-2023 End: 09-04-2023 ambulatory Kaylajabari Kirkpatrickaleshaony Facility:[facility] Start: 09-04-2023 End: 09-04-2023 ambulatory Marialuisa Gomes [facility] Facility:[facility] Start: 06-03-2023 End: 06-03-[address] Sandeep Marc Work Phone: [facility] Work Phone: Start: 06-03-2023 End: 06-03-[address] Sandeep Marc Work Phone: [facility]-Laboratory, Specimen Work Phone: Start: 06-03-2023 End: 06-03-[address] Sandeep Marc Work Phone: [facility] Work Phone: Start: 04-04-2023 End: 04-04-[address] Sandeep Marc Work Phone: [facility]-Laboratory, [facility] Start: 03-07-[address] Vickey Marc Work Phone: [facility] Start: 03-07-2023 End: 03-07-2023 Encounter for general adult medical examination without abnormal findings Dr. Sandeep Marc Work Phone: [facility] Start: 03-07-2023 End: 03-07-[address] Sandeep Marc Work Phone: [facility] Work Phone: Start: 07-17-2022 End: 07-17-2022 Patient encounter procedure MD Sandeep JACKSON [facility]-Outpatient Breast Imaging Work Phone: Start: 07-02-2022 End: 07-02-2022 ambulatory MD Sandeep JACKSON [facility] Work Phone: Start: 07-02-2022 End: 07-02-2022 Patient encounter procedure MD Sandeep JACKSON [facility] Work Phone: Start: 05-17-2022 End: 05-17-2022 Patient encounter procedure MD Sandeep JACKSON [facility] Work Phone: Start: 04-30-2022 End: 04-30-2022 ambulatory MD Sandeep Marc [facility] Work Phone: Start: 04-30-2022 End: 04-30-2022 Patient encounter procedure MD Sandeep JACKSON [facility] Internal Medicine Start: 04-09-2022 End: 04-09-2022 ambulatory MD Sandeep Morganvickey [facility] Work Phone: Start: 04-09-2022 End: 04-09-2022 [facility] Start: 03-20-2022 End: 03-20-2022 Patient encounter [facility] Start: 03-20-2022 End: 03-20-2022 [facility] Start: 07-12-2021 Patient encounter status MD Lay Marc [facility] Procedures Date Procedure Procedure Detail Performing Clinician Start: 08-03-2024 Screening mammography K eduin Gomes DO Work Phone: Start: 06-11-2024 Liquid based cervica l cytology screening Marialuisa Gomes DO Work Phone: Comment on above: NEGATIVE FOR INTRAEP ITHELIAL LESION OR MALIGNANCY.CELLULAR CHANGES ASSOCIATED WITH ATROPHY ARE PRESENT. This liquid based Th inPrep(R) pap test was screened withthe use of an image guided system. Start: 05-11-2024 X-ray of chest, PA a nd lateral views Marialuisa Gomes DO Work Phone: Start: 06-03-[address] Gorge Marc Work Phone: Start: 07-17-2022 Screening mammography Yariel JACKSON Plan of Treatment Date Care Activity Detail Author Start: 06-11-2024 Patient referral [facility] Work Phone: Start: 03-07-2023 Patient referral [facility] Work Phone: MG Breast - bilateral Screening [facility] MG Breast - bilateral Screening [facility] MG Breast - bilateral Screening [facility] Patient referral [facility] Work Phone: Immunizations Immunization Date Immunization Notes Care Provider Fa [facility] 02-07-2021 Covid (Pfizer) MD Sandeep Marc [facility] 05-12-2020 Covid (Pfizer) MD Sandeep Duran [facility] 04-21-2020 Covid (Pfizer) MD Sandeep Morganvickey [facility] Payers Date Payer Category Payer Self-pay [id number] 2016 Unknown [id number] Unknown [id number] Unknown [id number] [id number] [id number] Unknown [id number] 2.16.8 [id number] Unknown [id number] 2.16.8 [id number] Unknown [id number] 2.16.8 [id number] Unknown [id number] 2.16.8 [id number] Unknown [id number] 2.16.8 [id number] Unknown [id number] 2.16.8 [id number] Social History Date Type Detail Facility Start: 03-20-2022 End: 06-03-2023 Tobacco smoking status NHIS Unknown if ever smoked [facility] Start: 1965 Sex Assigned At Female W [facility] Start: 06-03-2023 Tobacco smoking stat us WVIS Never smoked tobacco (finding) [facility] Start: 05-14-2024 Sex Female (finding) [facility] Clinical Notes 03-20-2022 to 06-11-2024 Note Date & Type Note Facility 06-11-2024 Evaluation note Diagnosis Onset Date Resolution Encounter for routine gynecological examination noneactive June 11, 2024 11:03am [facility] Work Phone: 1(217) 611-103904-01-2025 Radiology Diagnostic study note [facility] Imaging Services [address] [place] [address] [id number] Chest PA and Lateral MR#: [id number] Acct: [id number] Name: SHONA DUARTE Rep #: [id number] : 1965 F 58 From: Ruy Rico MD PCP: Marialuisa Gomes DO Status: REG CLI Study:Chest PA and Lateral Date of Exam: 05/11/24 Exam# [id number] Ordering Dr: Geovanny Meier jessa [facility] MANNEQUIN MOLD MAKER-C PROCEDURE: CHEST PA AND LATERAL 05/11/2024 REASON FOR EXAM: COUGH TECHNIQUE: Frontal and lateral views of the chest. PA and lateral COMPARISON: 10/03/2018 FINDINGS: The lungs appear clear. Pulmonary vascularity appears within limits. No pleural effusion. The cardiac and mediastinal contours appear within limits. The visualized osseous structures appear within limits. RAD/Chest PA and Lateral IMPRESSION: No evidence of acute disease. Reading Location: [id number] CC: Marialuisa Gomes DO; Celeste [facility] MANNEQUIN MOLD MAKER-C Beam ~ Assurance Auditor: Signed [facility]04-22-2024 NotePap Smear Specimen AdequacyApril 2023 3:55pmComment.Satisfactory for evaluation. Endocervical component may not bedistinguished in cases of atrophy.[facility] INTERFACED A#[id number]. Vincent HospitalComcorewell [facility] on above:Satisfactory for evaluation. Endocervical component may not bedistinguished in cases of atrophy.03-20-2022 NotePap Smear Specimen AdequacyFebruary 2022 5:32pmComment.Satisfactory for evaluation. Endocervical component may not bedistinguished in cases of atrophy.[facility] INTERFACED A#[id number]. Vincent HospitalComment on above:Satisfactory for evaluation. Endocervical component may not bedistinguished in cases of atrophy. 03-20-2022 NotePap Smear Specimen AdequacyFebruary 2022 6:32pmComment. Satisfactory for evaluation. Endocervical component may not bedistinguished in cases of atrophy.[facility] INTERFACED A#[id number]. Vincent HospitalComment on above:Satisfactory for evaluation. 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 Work Phone: Evaluation note* Diagnosis Onset Date Resolution Status Overweight (BMI 25.0-29.9) a cute Anxiety and depression chron ic Hypertension chronic HPV test positive acute Nocturnal leg cramps acute URI (upper respiratory infection) acute Anxiety and depression chron ic Hypertension chronic Hypomagnesemia chronic [facility] Work Phone: Evaluation note* Diagnosis Onset Date Resolution Status Colon cancer screening acute Preventative health care acu te Lichen sclerosus acute Encounter for routine gynecological examination noneactive [facility] Work Phone: Evaluation noteNo assessment information available [facility] Work Phone: Reason for referral (narrative)No reason for referral information availableSt. Vincent Hospital Work Phone: Chief Complaint and Reason for Visit Chief Complaint Admit Date Annual (JUDICIAL LAW CLERK) June 11, 2024 11:03a m Screening Mammogram August 03, 2024 2:40 pm Reason for Visit Admit Date Encounter for routine gynecological exam ination June 11, 2024 11:03am Chief Complaint Annual (JUDICIAL LAW CLERK) SCREENING Reason for Visit Genital atrophy of f emale HPV test positive Encounter for routine gynecological examination Chief Complaint Annual (JUDICIAL LAW CLERK) SCREENING 9 M FU Reason for Visit Genital atrophy of f emale HPV test positive Encounter for routine gynecological examination Overweight (BMI 25.0-29.9) Anxiety and depression Hypertension Chief Complaint 9 M FU Colposcopy 2 m fu SCREENING Reason for Visit Overweight (BMI 25.0 -29.9) Anxiety and depression Hypertension HPV test positive Nocturnal leg cramps URI (upper respiratory infection) Anxiety and depression Hypertension Hypomagnesemia Chief Complaint FU Annual (JUDICIAL LAW CLERK) Reason for Visit Colon cancer screeni Preventative health care Lichen sclerosus Encounter for routine gynecological examination Chief Complaint Admit Date Annual (JUDICIAL LAW CLERK) June 11, 2024 11:03a m Family History No Family History Records Found Relationship Condition Age at Onset Recorded Date/T [place] father Coronary artery disease Unknown Diabetes mellitus Unknown Hypertension Unknown mother Cerebrovascular accident (CVA) Unknown aunt Malignant neoplasm of breast Unknown grandmother Malignant neoplasm of breast Unknown Summary Purpose Advance Directives No Advanced Directives Records Found Additional Source Comments Care Teams (unrecognized sec tion and content) Team Status: Active Member Role Status Dates Sandeep Marc MD Primary Care Provider Active Team Status: Inactive Member Role Status Esteban Marc MD Primary Care Provider, Referring Provider Active Dr. Kayla Dunn MD Attending Provider Active Team Status: Inactive Member Role Status Esteban Marc MD Primary Care Provider Active Dr. Kayla Dunn MD Attending Provider Active Team Status: Inactive Member Role Status Esteban Marc MD Primary Care Provider Active Dr. Kayla Dunn MD Attending Provider, Referr ing Provider Active Team Status: Active Member Role Status Dates Dr. Sandeep Marc MD Primary Care Provider Active Team Status: Inactive Member Role Status Dates Sandeep JACKSON MD Primary Care Provider, Referr ing Provider Active Dr. Sandeep Marc MD Attending Provider Active Team Status: Inactive Member Role Status Esteban JACKSON MD Primary Care Provider, Referr ing Provider Active Dr. Kayla Dunn MD Attending Provider Active Team Status: Inactive Member Role Status Dates Sandeep JACKSON MD Primary Care Provider Active Dr. Kayla Dunn MD Attending Provider Active Team Status: Inactive Member Role Status Dates Sandeep JACKSON MD Primary Care Provider Active Dr. Kayla Dunn MD Attending Provider, Referr ing Provider Active Team Status: Inactive Member Role Status Dates Dr. Sandeep Marc MD Primary Care P rovider, Attending Provider, Referring Provider Active Team Status: Inactive Member Role Status Esteban JACKSON MD Referring Provider Active Dr. Kayla Dunn MD Attending Provider Active Dr. Sandeep Marc MD Primary Care Provider Active Team Status: Inactive Member Role Status Dates Dr. Kayla Dunn MD Attending Provider, Referr ing Provider Active Dr. Sandepe Marc MD Primary Care Provider Active Team Status: Inactive Member Role Status Dates Dr. Sandeep Marc MD Primary Care Provider, Refer ring Provider Active Dr. Kayla Dunn MD Attending Provider Active Team Status: Inactive Member Role Status Dates Dr. Sandeep Marc MD Primary Care Provider, Atten ding Provider Active Team Status: Inactive Member Role Status Dates Dr. Sandeep Marc MD Primary Care Provider Active Dr. Kayla Dunn MD Attending Provider, Referr ing Provider Active Team Status: Active Member Role Status Dates Marialuisa Eliseo VSC, DO Primary Care Provider Active Team Status: Inactive Member Role Status Dates Marialuisa Eliseo VSC, DO Primary Care Provider Active Start: May 11, 2024 End: May 11, 2024 Zebulun Beam VSC, MANNEQUIN MOLD MAKER-C Attending Provider Active Start: May 11, 2024 End: May 11, 2024 Zebulun Beam VSC, MANNEQUIN MOLD MAKER-C Referring Provider Active Start: May 11, 2024 End: May 11, 2024 Team Status: Inactive Member Role Status Dates Marialuisa Gomes VSC, DO Primary Care Provider Active Start: June 11, 2024 End: June 11, 2024 Marialuisa Gomes VSC, DO Referring Provider Active Start: June 11, 2024 End: June 11, 2024 Dr. Kayla Dunn MD Attending Provider Active Start: June 11, 2024 End: June 11, 2024 Team Status: Inactive Member Role Status Dates Marialuisa Gomes VSC, DO Primary Care Provider Active Start: June 11, 2024 End: June 11, 2024 Dr. Kayla Dunn MD Attending Provider Active Start: June 11, 2024 End: June 11, 2024 Dr. Kayla Dunn MD Referring Provider Active Start: June 11, 2024 End: June 11, 2024 Team Status: Active Member Role/Relationship Status Dates Marialuisa Eliseo VSC, DO Primary Care Provider Active Team Status: Inactive Member Role/Relationship Status Dates Marialuisa Eliseo VSC, DO Primary Care Provider Active Start: May 11, 2024 End: May 11, 2024 Zebulun Beam VSC, MANNEQUIN [employer]KER-C Attending Provider Active Start: May 11, 2024 End: May 11, 2024 Zebulun Beam VSC, MANNEQUIN [employer]ER-C Referring Provider Active Start: May 11, 2024 End: May 11, 2024 Team Status: Inactive Member Role/Relationship Status Dates Marialuisa Eliseo VSC, DO Primary Care Provider Active Start: June 11, 2024 End: June 11, 2024 Marialuisa Gomes VSC, DO Referring Provider Active Start: June 11, 2024 End: June 11, 2024 Dr. Kayla Dunn MD Attending Provider Active Start: June 11, 2024 End: June 11, 2024 Team Status: Inactive Member Role/Relationship Status Dates Marialuisa Velardemariana SAWYER, DO Primary Care Provider Active Start: June 11, 2024 End: June 11, 2024 Dr. Kayla Dunn MD Attending Provider Active Start: June 11, 2024 End: June 11, 2024 Dr. Kayla Dunn MD Referring Provider Active Start: June 11, 2024 End: June 11, 2024 Team Status: Inactive Member Role/Relationship Status Dates Marialuisa Eliseo SAWYER, DO Primary Care Provider Active Start: August 03, 2024 End: August 03, 2024 Dr. Kayla Dunn MD Attending Provider Active Start: August 03, 2024 End: August 03, 2024 Dr. Kayla Dunn MD Referring Provider Active Start: August 03, 2024 End: August 03, 2024 Goals (unrecognized section and content) Goals may be documented in a n alternate sectionGoals may be documented in an alternate sectionGoals may be documented in an alternate sectionGoals may be documented in an alternate sectionGoals may be documented in an alternate sectionGoals may be documented in an alternate sectionGoals may be documented in an alternate section INFORMATION SOURCE (unrecogn ized section and content) DATE CREATED AUTHOR 08/09/2024 [facility] FOR RECORDS PERTAINING TO PATIENTS WHO ARE OR HAVE BEEN ENROLLED IN A CHEMICAL DEPENDENCY/SUBSTANCEABUSE PROGRAM, SOME INFORMATION MAY BE OMITTED. This clinical summary was aggregated from multiple sources. Caution should be exercised in using it in the provision of clinical care. This summary normalizes information from multiple sources, and as a consequence, information in this document may materially change the coding, format and clinical context of patient data. In addition, data may be omitted in some cases. CLINICAL DECISIONS SHOULD BE BASED ON THE PRIMARY CLINICAL RECORDS. [employer] provides no warranty or guarantee of the accuracy or completeness of information in this document.
== END | disposition home or self-care (01) ==
LOC: VSLAB 10:04
PROVIDERS: PCP Family Medicine; Visit Provider Family Medicine
DX: Z00.00 Encounter for general adult medical examination without abnormal findings (principal); Z13.6 Encounter for screening for cardiovascular disorders
CPT/HCPCS: 36415; 80053; 80061; 84443; 85025

== ENCOUNTER 2024-11-25 14:11 | Emergency (ER) | payer BC, SELFPAY ==
[2024-11-25 14:12] VITALS: BP 161/80; PULSE 64; RESP 22; TEMP 36.1; O2SAT 100; BMI 31.4
--- NOTE | 2024-11-25 14:33 | EX.ED.GENINJ ---
HPI History of Present Illness Chief Complaint: Fall Narrative Narrative: 59-year-old female past medical history of fibromyalgia presents with right low back and hip pain status post mechanical fall. She states that she was walking down a few wooden stairs with her socks on and slipped. She fell onto her right hip and buttocks area. Took her a few minutes to get up secondary to pain. She denies hitting her head or loss of consciousness, no neck pain or other injury. She has pain mainly in her right low back area and right hip. Pain worse with movement. PFSH PFS Medical History Preventative health care Colon cancer screening URI (upper respiratory infection) Nocturnal leg cramps Hypertension Overweight (BMI 25.0-29.9) HPV test positive Abnormal Pap smear of cervix Health care maintenance Hypomagnesemia Anxiety and depression Spinal stenosis IBS (irritable bowel syndrome) Depression Anemia Fibromyalgia Insomnia Supraventricular tachycardia Home Medications ?Medication ?Instructions ?Recorded ?Last Taken ?Type Bacillus coagulans 250 million cell PO 01/17/17 Unknown History cell chewable tablet (Probiotic (B. coagulans)) cholecalciferol (vitamin D3) 125 5,000 unit PO QDAY 01/17/17 Unknown History mcg (5,000 unit) capsule B-complex with vitamin C 1 tab PO DAILY 03/10/21 Unknown History magnesium 250 mg tablet 250 mg PO DAILY 03/10/21 Unknown History fluoxetine 20 mg capsule 20 mg PO DAILY #90 caps 07/02/22 Unknown Rx clobetasol 0.05 % topical ointment 1 applic topical QHS #30 grams 06/03/23 Unknown Rx zinc gluconate 100 mg tablet 100 mg PO DAILY 06/03/23 Unknown History Allergy/AdvReac Type Severity Reaction Status Date / Time formaldehyde Allergy Unknown Verified 11/25/24 14:12 latex Allergy Unknown Verified 11/25/24 14:12 neomycin Allergy unknown Verified 11/25/24 14:12 Sulfa (Sulfonamide Allergy Unknown Verified 11/25/24 14:12 Antibiotics) codeine AdvReac Unknown Verified 11/25/24 14:12 Family History Father CAD (coronary artery disease) Diabetes Hypertension Mother CVA (cerebral vascular accident) Diabetes Aunt Breast cancer Grandmother Breast cancer Surgical History delivery delivered History of electrophysiologic study (~09/10/13) Social History Smoking Status: Never smoker alcohol intake: never substance use type: does not use caffeine: Yes what type of physical activity do you participate in: none seatbelt use: always do you feel safe at home: Yes additional social history: Demetris- Retired Patient cleans homes ROS ROS ED ROS Narrative Review of systems is positive for right low back and hip pain. Denies hitting her head or loss of consciousness. Does not take blood thinners. No other injury. Pain worse with movement of right hip/lower extremity. EXAM Physical Exam Narrative Exam Narrative: GCS 15. ABCs intact. Patient feels more comfortable in a standing position for examination. Cardiovascular semination regular rate and rhythm. Lungs are clear to auscultation bilaterally. Abdomen soft and nontender with positive bowel sounds. Mild tenderness to palpation right paraspinal lumbar area, no noted ecchymosis, diffuse tenderness to palpation right hip. Appears neurovascular intact to right lower extremity as is able to stand and ambulate. No crepitance of right hip. Const Vital Signs: 11/25/24 14:12 Temperature 97 F L Temperature Source Temporal Pulse Rate 64 Respiratory Rate 22 H Blood Pressure 161/80 H Blood Pressure Mean 107 Pulse Ox 100 Oxygen Delivery Method Room Air MDM MDM MDM Narrative Medical decision making narrative: Patient declines any oral analgesics here. She states she usually takes Tylenol but declined this or any stronger pain medications orally. Differential diagnosis includes but not limited to right low back and hip contusion versus fracture versus pubic ramus fracture. I have low suspicion for any vertebral compression fracture as she is not having midline tenderness. X-rays will be obtained of the lumbar spine as well as the pelvis and right hip to help rule out fracture. On my independent interpretation of the x-rays of the lumbar spine there is no acute compression fracture. I reviewed the radiology report which confirms my independent interpretation. X-ray of the right hip and pelvis shows no evidence of pubic ramus fracture or hip fracture/dislocation. She does have osteoarthrosis. I reviewed the radiology report which confirms my independent interpretation. At this point in time, I feel she can be discharged to follow-up with her primary care provider in 1 week if not improving. She declines any analgesics or prescription form and can take [id number] medications. Return instructions to the emergency department were reviewed. Disposition is discharged home in stable condition. History & Record Review Discussion w/independent historian: Patient Additional record(s) reviewed:: Prior ED visit (No prior ED visit) Radiography Diagnostic Testing: Clinical Impression(s) from Imaging Studies Hip/Pelvis X-Ray 11/25/24 14:45 IMPRESSION: Mild bilateral hip osteoarthrosis. Reading Location: [address] Lumbar Spine X-Ray 11/25/24 14:45 IMPRESSION: Spondylosis. Reading Location: [address] Discharge Plan Triage Chief Complaint: Fall ED Provider: Marko Mike Dx/Rx/DC Orders Clinical Impression: Fall down stairs, Contusion of right hip, Contusion of lower back Instructions: ED Back Contusion, ED Mechanical Fall, ED Hip Contusion Prescriptions: No Action Bacillus coagulans [Probiotic (B. coagulans)] 250 million cell tablet,chewable PO cholecalciferol (vitamin D3) 5,000 unit capsule 5,000 unit PO QDAY B-complex with vitamin C Tablet 1 tab PO DAILY magnesium 250 mg tablet 250 mg PO DAILY zinc gluconate 100 mg tablet 100 mg PO DAILY clobetasol 0.05 % ointment 1 applic topical QHS Qty: 30 3RF Rx Instructions: apply thin layer; massage gently into affected area nightly x 6 weeks then 1-2x weekly fluoxetine 20 mg capsule 20 mg PO DAILY Qty: 90 3RF Primary Care Provider: Marialuisa Gomes Referrals: Marialuisa Gomes, DO [Primary Care Provider, Family Practice] - 1 Week if not improving Activity Restrictions/Additional Instructions: [id number] medications as needed for pain. Return with new or worsening symptoms. Follow-up with your primary care provider in 1 week if not improving. Print Language: Czech Disposition Disposition: Home, Self Care
--- NOTE | 2024-11-25 14:45 | RAD_ITS ---
PROCEDURE: LUMBAR SPINE 2 OR 3 VIEWS 11/25/2024 REASON FOR EXAM: TRAUMA TECHNIQUE: Procedure Code: RADSPLL Modality: DX Procedure: LUMBAR SPINE 2 OR 3 VIEWS FINDINGS: No evidence acute fracture or dislocation. Mill-fm-irawizct degenerative changes of the visualized spine. Normal alignment. Vertebral body heights are maintained. RAD/Lumbar Spine 2 or 3 Views IMPRESSION: Spondylosis. Reading Location: [id number]
--- NOTE | 2024-11-25 14:45 | RAD_ITS ---
PROCEDURE: HIP, UNI W/ PELVIS 2-3 VIEWS 11/25/2024 REASON FOR EXAM: TRAUMA TECHNIQUE: Procedure Code: [facility] Modality: DX Procedure: HIP, UNI W/ PELVIS 2-3 VIEWS Laterality: FINDINGS: No evidence acute fracture or dislocation. Mild degenerative changes of bilateral hips. Degenerative changes of the partially visualized spine. RAD/HIP, UNI W/ Pelvis 2-3 Views IMPRESSION: Mild bilateral hip osteoarthrosis. Reading Location: [id number]
[2024-11-25 15:52] VITALS: BP 123/67; PULSE 63; RESP 18; TEMP 36.6; O2SAT 100
== END 2024-11-25 16:01 | disposition home or self-care (01) ==
PROVIDERS: Emergency Provider Emergency Medicine; PCP Family Medicine; Visit Provider Emergency Medicine
DX: S70.01XA Contusion of right hip, initial encounter (principal); S20.229A Contusion of unspecified back wall of thorax, initial encounter; I10 Essential (primary) hypertension; M16.0 Bilateral primary osteoarthritis of hip; M79.7 Fibromyalgia; W10.9XXA Fall (on) (from) unspecified stairs and steps, initial encounter
CPT/HCPCS: 72100; 73502; 99282